=== PATIENT | male | born 1950 | race Caucasian/White ===

== ENCOUNTER 2022-11-15 07:05 | Emergency (ER) | payer OTHER ==
--- OUTSIDE RECORDS SUMMARY | 2022-11-15 07:10 | XMS REPORT | Continuity of Care Document ---
:1950 Author Organization [facility] t Address [address] [facility] [address] [place] [address] Care Team Providers Name Role Phone Suni Huston MD Primary Care Physician [phone] REGINE JUNE Attending Clinician Unavailable JUAN MIGUEL DE LEON Attending Clinician Unavailable SUNI HUSTON Attending Clinician Unavailable TREASURE PAREDES Attending Clinician Unavailable CECILLE LAMA Attending Clinician Unavailable LAB90 Attending Clinician Unavailable KATERYNA TEE Attending Clinician Unavailable SERGEI MARSH Attending Clinician Unavailable RICHIE PATEL Attending Clinician Unavailable Kateryna Tee DO Attending Clinician Suni Huston MD Attending Clinician [phone] COVID-PFIZER TREASURE BECK Attending Clinician Unavaila ble NT90 Attending Clinician Unavailable COVID-BEVERLY CASTILLO Attending Clinician Unavaila ble Payers Payer Name Policy Type Policy Number Effective Date Expiration Date S [place] [id number] 2021 00:00:00 HLTH-UMR/PPO Problems Condition Condition Condition Status Onset Resolution Last Treating Co mments Source Name Details Category Date Date Treatment Clinician Date DM type 2 DM type 2 Disease Active John sey with with 5-21 Seybold diabetic diabetic 00:00: - mixed mixed 00 Externa hyperlipid hyperlipid l emia emia Acute Acute Disease Active Faiza left-sided left-sided 2-06 Se ybold low back low back 00:00: - pain pain 00 Externa without without l sciatica sciatica Closed Closed Disease Active 2021-03 Faiza nondisplac nondisplac 1-18 Se ybold ed ed 00:00: - fracture fracture 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 middle of middle l phalanx of phalanx of left left middle middle finger finger with with routine routine healing healing Right hand Right hand Disease Active 2021-03 Alfredito kale pain pain 0-12 Seybold 00:00: - 00 Externa l Well adult Well adult Disease Active Alfredito grettaalessandra exam exam 8-30 Seybold 00:00: - 00 Externa l Hyperlipid Hyperlipid Disease Active Alfredito gretatalessandra emia emia 8-30 Seybold 00:00: - 00 Externa l Sebaceous Sebaceous Disease Active John carter cyst cyst 8 Seybold 00:00: - 00 Externa l Seasonal Seasonal Disease Active Madeleine y allergic allergic 2 Seybol d rhinitis rhinitis 00:00: - 00 Externa l Cerumen Cerumen Disease Active Faiza debris on debris on 2-11 Seyb old tympanic tympanic 00:00: - membrane membrane 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 both of both l ears ears Other Other Disease Active Faiza dietary dietary 2- Seybold vitamin vitamin 00:00: - B12 B12 00 Externa deficiency deficiency l anemia anemia Hypertensi Hypertensi Disease Active Alfredito henley on on 6 Seybold 00:00: - 00 Externa l Type 2 Type 2 Disease Active Faiza diabetes diabetes 6- Seybol d mellitus mellitus 00:00: - with stage with stage 00 Ex terna 3a chronic 3a chronic l kidney kidney disease, disease, without without long-term long-term current current use of use of insulin insulin Chronic Chronic Disease Active Faiza kidney kidney 6- Seybold disease, disease, 00:00: - stage III stage III 00 Exte rna (moderate) (moderate) l Allergies, Adverse Reactions, Alerts This patient has no known allergies or adverse reactions. 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 SARS-CoV-2 (event) Alcohol intake 2022-11-08 2022-11-08 Lifetime Faiza Carter bold 00:00:00 00:00:00 non-drinker - External (finding) Tobacco use and 2022-08-12 2022-08-12 Smokeless tobacco Turner perez Seybold exposure 00:00:00 00:00:00 non-user - External Education 2021-11-20 2021-11-20 16 Faiza Razoold 00:00:00 00:00:00 - External History of Social 2021-11-20 2021-11-20 Faiza Razoold function 00:00:00 00:00:00 - External Sex [birth year] Faiza gustafson 00:00:00 00:00:00 - External Smoking Status Start Date Stop Date Source Never smoked tobacco Faiza Razo old - External Medications Ordered Filled Start Stop Current Ordering Indication Dosage Frequency Signature Comments Components Source Medication Medication Date Date Medication? Clinician (SIG) Name Name Cyanocobala Yes 1000ug Take 1 Turner perez min 8-18 tablet Seybold (Vitamin 16:32: (1,000 mcg - B-12) 1000 19 total) by Exte rna MCG oral mouth l Tablet daily Aspirin 81 Yes 81mg Take 1 Kelse y MG oral 8-18 tablet (81 Seybol d Tablet 16:32: mg total) - Delayed 19 by mouth Externa Response daily l FLUTICASONE Yes [id number] 50ug Use 1 Faiza PROPIONATE, 8-18 spray (50 Sey bold NASAL, 50 00:00: mcg total) - MCG/ACT 00 in each Externa nasal nostril l Suspension daily Loratadine Yes [id number] 10mg Take 1 Faiza (Claritin 8-18 tablet (10 Seyb old Reditabs) 00:00: mg total) - 10 MG oral 00 by mouth Exter na TABLET daily l DISPERSIBLE Carvedilol Yes [id number] 3.125mg Take 1 Faiza (Coreg) 6-06 tablet Seybold 3.125 MG 00:00: (3.125 mg - oral Tablet 00 total) by Ext brad mouth l every other day Cyanocobala Yes 1000ug Take 1 Ke lsey min 5-22 tablet Seybold (Vitamin 09:53: (1,000 mcg - B-12) 1000 39 total) by Exte rna MCG oral mouth l Tablet daily Aspirin 81 Yes 81mg Take 1 Kelse y MG oral 5-22 tablet (81 Seybol d Tablet 09:53: mg total) - Delayed 39 by mouth Externa Response daily l Cyanocobala Yes 1000ug Take 1,000 Faiza min 2-20 mcg by Seybold (Vitamin 16:06: mouth - B-12) 1000 54 daily Externa MCG oral l Tablet Aspirin 81 Yes 81mg Take 81 mg K elsey MG oral 2-20 by mouth Seybold Tablet 16:06: daily - Delayed 54 Externa Response l Tramadol Yes [id number] 50mg Q.5D Take 1 Ke lsey HCl 2-06 tablet (50 Seybold (ULTRAM) 50 00:00: mg total) - MG oral 00 by mouth 2 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 Tablet times l daily as needed for pain Tramadol Yes [id number] 50mg Q.5D Take 1 Ke lsey HCl 2-06 tablet (50 Seybold (ULTRAM) 50 00:00: mg total) - MG oral 00 by mouth 2 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 Tablet times l daily as needed for pain Tramadol Yes [id number] 50mg Q.5D Take 1 Ke lsey HCl 2-06 tablet (50 Seybold (ULTRAM) 50 00:00: mg total) - MG oral 00 by mouth 2 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 Tablet times l daily as needed for pain Tramadol Yes [id number] 50mg Q.5D Take 1 Ke lsey HCl 2-06 tablet (50 Seybold (ULTRAM) 50 00:00: mg total) - MG oral 00 by mouth 2 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 Tablet times l daily as needed for pain Tramadol 2022- No [id number] 50mg Q.5D Take 1 Ke lsey HCl 2-01 02-06 tablet (50 Seybold (ULTRAM) 50 00:00: 00:00 mg total) - MG oral 00 :00 by mouth 2 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 Tablet times l daily as needed for pain Cyanocobala 2021-03 Yes 1000ug Take 1,000 Faiza min 1-18 mcg by Seybold (Vitamin 09:42: mouth - B-12) 1000 26 daily Externa MCG oral l Tablet Aspirin 2021-03 Yes 81mg Take 81 mg K elsey MG oral 1-18 by mouth Seybold Tablet 09:42: daily - Delayed 26 Externa Response l Cyanocobala 2021-03 Yes 1000ug Take 1,000 Faiza min 1-18 mcg by Seybold (Vitamin 09:42: mouth - B-12) 1000 26 daily Externa MCG oral l Tablet Aspirin 2021-03 Yes 81mg Take 81 mg K elsey MG oral 1-18 by mouth Seybold Tablet 09:42: daily - Delayed 26 Externa Response l Cyanocobala 2021-03 Yes 1000ug Take 1,000 Faiza min 0-31 mcg by Seybold (Vitamin 10:53: mouth - B-12) 1000 07 daily Externa MCG oral l Tablet Aspirin 2021-03 Yes 81mg Take 81 mg K elsey MG oral 0-31 by mouth Seybold Tablet 10:53: daily - Delayed 07 Externa Response l Cyanocobala 2021-03 Yes 1000ug Take 1,000 Faiza min 0-10 mcg by Seybold (Vitamin 08:49: mouth - B-12) 1000 18 daily Externa MCG oral l Tablet Aspirin 2021-03 Yes 81mg Take 81 mg K elsey MG oral 0-10 by mouth Seybold Tablet 08:49: daily - Delayed 18 Externa Response l NEOMYCIN-PO 2021-03 Yes [id number] 2[drp] Place 2 Faiza LYMYXIN-HC, 0-10 [id number] drops into S eybold OTIC, 1 % 00:00: both ears - otic 00 3 times Externa Solution daily l NEOMYCIN-PO 2021-03 Yes [id number] 2[drp] Place 2 Faiza LYMYXIN-HC, 0-10 [id number] drops into S eybold OTIC, 1 % 00:00: both ears - otic 00 3 times Externa Solution daily l NEOMYCIN-PO 2021-03 Yes [id number] 2[drp] Place 2 Faiza LYMYXIN-HC, 0-10 [id number] drops into S eybold OTIC, 1 % 00:00: both ears - otic 00 3 times Externa Solution daily l NEOMYCIN-PO 2021-03 Yes [id number] 2[drp] Place 2 Faiza LYMYXIN-HC, 0-10 [id number] drops into S eybold OTIC, 1 % 00:00: both ears - otic 00 3 times Externa Solution daily l NEOMYCIN-PO 2021-03 Yes [id number] 2[drp] Place 2 Faiza LYMYXIN-HC, 0-10 [id number] drops into S eybold OTIC, 1 % 00:00: both ears - otic 00 3 times Externa Solution daily l NEOMYCIN-PO 2021-03 Yes [id number] 2[drp] Place 2 Faiza LYMYXIN-HC, 0-10 [id number] drops into S eybold OTIC, 1 % 00:00: both ears - otic 00 3 times Externa Solution daily l NEOMYCIN-PO 2021-03 Yes [id number] 2[drp] Place 2 Faiza LYMYXIN-HC, 0-10 [id number] drops into S eybold OTIC, 1 % 00:00: both ears - otic 00 3 times Externa Solution daily l LISINOPRIL- Yes [id number] 1{tbl} Take 1 Faiza HCTZ 8-30 tablet by Seybold 20-12.5 MG 00:00: mouth - oral Tablet 00 daily Externa l Pioglitazon Yes [id number] 15mg Take 1 Faiza e HCl 15 MG 8-30 tablet (15 Se ybold oral Tablet 00:00: mg total) - 00 by mouth Externa daily l Carvedilol Yes [id number] 3.125mg Take 1 Faiza (Coreg) 8-30 tablet Seybold 3.125 MG 00:00: (3.125 mg - oral Tablet 00 total) by Ext brad mouth l every other day LISINOPRIL- Yes [id number] 1{tbl} Take 1 Faiza HCTZ 8-30 tablet by Seybold 20-12.5 MG 00:00: mouth - oral Tablet 00 daily Externa l Pioglitazon 2021-0 Yes [id number] 15mg Take 1 Faiza e HCl 15 MG 8-30 tablet (15 Se ybold oral Tablet 00:00: mg total) - 00 by mouth Externa daily l Carvedilol 2021-0 Yes [id number] 3.125mg Take 1 Faiza (Coreg) 8-30 tablet Seybold 3.125 MG 00:00: (3.125 mg - oral Tablet 00 total) by Ext brad mouth l every other day LISINOPRIL- 2021-0 Yes [id number] 1{tbl} Take 1 Faiza HCTZ 8-30 tablet by Seybold 20-12.5 MG 00:00: mouth - oral Tablet 00 daily Externa l Pioglitazon 0 Yes [id number] 15mg Take 1 Faiza e HCl 15 MG 8-30 tablet (15 Se ybold oral Tablet 00:00: mg total) - 00 by mouth Externa daily l Carvedilol 0 Yes [id number] 3.125mg Take 1 Faiza (Coreg) 8-30 tablet Seybold 3.125 MG 00:00: (3.125 mg - oral Tablet 00 total) by Ext brad mouth l every other day LISINOPRIL- 2021-0 Yes [id number] 1{tbl} Take 1 Faiza HCTZ 8-30 tablet by Seybold 20-12.5 MG 00:00: mouth - oral Tablet 00 daily Externa l Pioglitazon 2021-0 Yes [id number] 15mg Take 1 Faiza e HCl 15 MG 8-30 tablet (15 Se ybold oral Tablet 00:00: mg total) - 00 by mouth Externa daily l Carvedilol 0 Yes [id number] 3.125mg Take 1 Faiza (Coreg) 8-30 tablet Seybold 3.125 MG 00:00: (3.125 mg - oral Tablet 00 total) by Ext brad mouth l every other day LISINOPRIL- 2021-0 Yes [id number] 1{tbl} Take 1 Faiza HCTZ 8-30 tablet by Seybold 20-12.5 MG 00:00: mouth - oral Tablet 00 daily Externa l Pioglitazon 2021-0 Yes [id number] 15mg Take 1 Faiza e HCl 15 MG 8-30 tablet (15 Se ybold oral Tablet 00:00: mg total) - 00 by mouth Externa daily l Carvedilol Yes [id number] 3.125mg Take 1 Faiza (Coreg) 8-30 tablet Seybold 3.125 MG 00:00: (3.125 mg - oral Tablet 00 total) by Ext brad mouth l every other day LISINOPRIL- Yes [id number] 1{tbl} Take 1 Faiza HCTZ 8-30 tablet by Seybold 20-12.5 MG 00:00: mouth - oral Tablet 00 daily Externa l Pioglitazon Yes [id number] 15mg Take 1 Faiza e HCl 15 MG 8-30 tablet (15 Se ybold oral Tablet 00:00: mg total) - 00 by mouth Externa daily l Carvedilol Yes [id number] 3.125mg Take 1 Faiza (Coreg) 8-30 tablet Seybold 3.125 MG 00:00: (3.125 mg - oral Tablet 00 total) by Ext brad mouth l every other day LISINOPRIL- Yes [id number] 1{tbl} Take 1 Faiza HCTZ 8-30 tablet by Seybold 20-12.5 MG 00:00: mouth - oral Tablet 00 daily Externa l Pioglitazon Yes [id number] 15mg Take 1 Faiza e HCl 15 MG 8-30 tablet (15 Se ybold oral Tablet 00:00: mg total) - 00 by mouth Externa daily l Amoxicillin 2021- No [id number] 1{tbl} Take 1 Faiza -Pot 8-23 10-10 tablet by Seybold Clavulanate 00:00: 00:00 mouth 2 - 875-125 MG 00 :00 times Externa oral Tablet daily l NEOMYCIN-PO 2021- No [id number] 2[drp] Place 2 Faiza LYMYXIN-HC, 8-10 10-10 [id number] drops into Seybold OTIC, 1 % 00:00: 00:00 both ears - otic 00 :00 3 times Externa Solution daily l Cyanocobala Yes 1000ug Take 1,000 Faiza min 5-16 mcg by Seybold (Vitamin 09:07: mouth B-12) 1000 24 daily MCG oral Tablet Aspirin 81 Yes 81mg Take 81 mg K elsey MG oral 5-16 by mouth Seybold Tablet 09:07: daily Delayed 24 Response Cyanocobala Yes 1000ug Take 1,000 Faiza min 2-11 mcg by Seybold (Vitamin 09:11: mouth B-12) 1000 51 daily MCG oral Tablet Aspirin Yes 81mg Take 81 mg Emilia ey (Aspirin 2-11 by mouth Seybold 81) 81 MG 09:10: every oral Tablet 35 other day Delayed Response Carvedilol Yes [id number] 3.125mg Take 1 Faiza (Coreg) 2-11 tablet Seybold 3.125 MG 00:00: (3.125 mg oral Tablet 00 total) by mouth 2 times daily (with meals) FLUTICASONE Yes [id number] 50ug Use 1 Faiza PROPIONATE, 2-11 spray (50 Sey bold NASAL, 50 00:00: mcg total) MCG/ACT 00 in each nasal nostril Suspension daily Loratadine Yes [id number] 10mg Take 1 Faiza (Claritin 2-11 tablet (10 Seyb old Reditabs) 00:00: mg total) 10 MG oral 00 by mouth TABLET daily DISPERSIBLE Carvedilol Yes [id number] 3.125mg Take 1 Faiza (Coreg) 2-11 tablet Seybold 3.125 MG 00:00: (3.125 mg oral Tablet 00 total) by mouth 2 times daily (with meals) FLUTICASONE Yes [id number] 50ug Use 1 Faiza PROPIONATE, 2-11 spray (50 Sey bold NASAL, 50 00:00: mcg total) MCG/ACT 00 in each nasal nostril Suspension daily Loratadine Yes [id number] 10mg Take 1 Faiza (Claritin 2-11 tablet (10 Seyb old Reditabs) 00:00: mg total) 10 MG oral 00 by mouth TABLET daily DISPERSIBLE FLUTICASONE Yes [id number] 50ug Use 1 Faiza PROPIONATE, 2-11 spray (50 Sey bold NASAL, 50 00:00: mcg total) - MCG/ACT 00 in each Externa nasal nostril l Suspension daily Loratadine 0 Yes [id number] 10mg Take 1 Faiza (Claritin 2-11 tablet (10 Seyb old Reditabs) 00:00: mg total) - 10 MG oral 00 by mouth Exter na TABLET daily l DISPERSIBLE FLUTICASONE 0 Yes [id number] 50ug Use 1 Faiza PROPIONATE, 2-11 spray (50 Sey bold NASAL, 50 00:00: mcg total) - MCG/ACT 00 in each Externa nasal nostril l Suspension daily Loratadine 0 Yes [id number] 10mg Take 1 Faiza (Claritin 2-11 tablet (10 Seyb old Reditabs) 00:00: mg total) - 10 MG oral 00 by mouth Exter na TABLET daily l DISPERSIBLE FLUTICASONE 0 Yes [id number] 50ug Use 1 Faiza PROPIONATE, 2-11 spray (50 Sey bold NASAL, 50 00:00: mcg total) - MCG/ACT 00 in each Externa nasal nostril l Suspension daily Loratadine 0 Yes [id number] 10mg Take 1 Faiza (Claritin 2-11 tablet (10 Seyb old Reditabs) 00:00: mg total) - 10 MG oral 00 by mouth Exter na TABLET daily l DISPERSIBLE FLUTICASONE 0 Yes [id number] 50ug Use 1 Faiza PROPIONATE, 2-11 spray (50 Sey bold NASAL, 50 00:00: mcg total) - MCG/ACT 00 in each Externa nasal nostril l Suspension daily Loratadine 0 Yes [id number] 10mg Take 1 Faiza (Claritin 2-11 tablet (10 Seyb old Reditabs) 00:00: mg total) - 10 MG oral 00 by mouth Exter na TABLET daily l DISPERSIBLE FLUTICASONE 0 Yes [id number] 50ug Use 1 Faiza PROPIONATE, 2-11 spray (50 Sey bold NASAL, 50 00:00: mcg total) - MCG/ACT 00 in each Externa nasal nostril l Suspension daily Loratadine 0 Yes [id number] 10mg Take 1 Faiza (Claritin 2-11 tablet (10 Seyb old Reditabs) 00:00: mg total) - 10 MG oral 00 by mouth Exter na TABLET daily l DISPERSIBLE FLUTICASONE Yes [id number] 50ug Use 1 Faiza PROPIONATE, 2-11 spray (50 Sey bold NASAL, 50 00:00: mcg total) - MCG/ACT 00 in each Externa nasal nostril l Suspension daily Loratadine Yes [id number] 10mg Take 1 Faiza (Claritin 2-11 tablet (10 Seyb old Reditabs) 00:00: mg total) - 10 MG oral 00 by mouth Exter na TABLET daily l DISPERSIBLE FLUTICASONE 2022- No [id number] 50ug Use 1 Faiza PROPIONATE, 2-11 08-18 spray (50 Se ybold NASAL, 50 00:00: 00:00 mcg total) - MCG/ACT 00 :00 in each Externa nasal nostril l Suspension daily Loratadine 2022- No [id number] 10mg Take 1 Faiza (Claritin 2-11 08-18 tablet (10 Sey bold Reditabs) 00:00: 00:00 mg total) - 10 MG oral 00 :00 by mouth Exter na TABLET daily l DISPERSIBLE Aspirin 2020-03 Yes 81mg Take 81 mg Emilia ey (Aspirin 2-06 by mouth Seybold 81) 81 MG 08:31: every oral Tablet 35 other day Delayed Response Aspirin 2020-03 Yes 81mg Take 81 mg Emilia ey (Aspirin 1-09 by mouth Seybold 81) 81 MG 10:57: every oral Tablet 52 other day Delayed Response Escitalopra 2020-03 Yes Faiza m Oxalate 0-27 Seybold 10 MG oral 00:00: Tablet 00 Escitalopra 2020-03 Yes Faiza m Oxalate 0-27 Seybold 10 MG oral 00:00: Tablet 00 Escitalopra 2020-03 Yes Faiza m Oxalate 0-27 Seybold 10 MG oral 00:00: Tablet 00 Alprazolam 2020-03 Yes [id number] Take 1 Faiza 0.25 MG 0-01 tablet by Seybold oral Tablet 00:00: mouth as 00 needed before stressful event Alprazolam 2020-03 Yes [id number] Take 1 Faiza 0.25 MG 0-01 tablet by Seybold oral Tablet 00:00: mouth as 00 needed before stressful event Alprazolam 2020-03- No [id number] Take 1 Faiza 0.25 MG 0-01 02-11 tablet by Seybol d oral Tablet 00:00: 00:00 mouth as 00 :00 needed before stressful event Carvedilol Yes [id number] 12.5mg Take 1 Faiza 12.5 MG 6-11 tablet Seybold oral Tablet 00:00: (12.5 mg 00 total) by mouth 2 times daily (with meals) Carvedilol Yes [id number] 12.5mg Take 1 Faiza 12.5 MG 6-11 tablet Seybold oral Tablet 00:00: (12.5 mg 00 total) by mouth 2 times daily (with meals) Carvedilol 2021- No [id number] 12.5mg Take 1 Faiza 12.5 MG 6-11 02-11 tablet Seybold oral Tablet 00:00: 00:00 (12.5 mg 00 :00 total) by mouth 2 times daily (with meals) Pioglitazon Yes [id number] 15mg Take 1 Faiza e HCl 15 MG 6-10 tablet (15 Se ybold oral Tablet 00:00: mg total) 00 by mouth daily LISINOPRIL- Yes [id number] 1{tbl} Take 1 Faiza HCTZ 6-10 tablet by Seybold 20-12.5 MG 00:00: mouth oral Tablet 00 daily Pioglitazon 2020-0 Yes [id number] 15mg Take 1 Faiza e HCl 15 MG 6-10 tablet (15 Se ybold oral Tablet 00:00: mg total) 00 by mouth daily LISINOPRIL- 0 Yes [id number] 1{tbl} Take 1 Faiza HCTZ 6-10 tablet by Seybold 20-12.5 MG 00:00: mouth oral Tablet 00 daily Pioglitazon 0 Yes [id number] 15mg Take 1 Faiza e HCl 15 MG 6-10 tablet (15 Se ybold oral Tablet 00:00: mg total) 00 by mouth daily LISINOPRIL- 0 Yes [id number] 1{tbl} Take 1 Faiza HCTZ 6-10 tablet by Seybold 20-12.5 MG 00:00: mouth oral Tablet 00 daily Pioglitazon Yes [id number] 15mg Take 1 Faiza e HCl 15 MG 6-10 tablet (15 Se ybold oral Tablet 00:00: mg total) 00 by mouth daily LISINOPRIL- Yes [id number] 1{tbl} Take 1 Faiza HCTZ 6-10 tablet by Seybold 20-12.5 MG 00:00: mouth oral Tablet 00 daily Immunizations Ordered Immunization Filled Immunization Date Status Commen ts Source Name Name Tdap- (Boostrix, 2022-07-12 Completed Faiza gonzalezbobrandie Adacel) 00:00:00 - External Tdap- (Boostrix, 2022-07-12 Completed Faiza gonzalezbobrandie Adacel) 00:00:00 - External Influenza Virus 2021-12-03 Completed Faiza Se ybold Vaccine, 00:00:00 - External Quadrivalent, High Dose, Age 65 And Up Influenza Virus 2021-12-03 Completed Faiza Se ybold Vaccine, 00:00:00 - External Quadrivalent, High Dose, Age 65 And Up Influenza Virus 2021-12-03 Completed Faiza Se ybold Vaccine, 00:00:00 - External Quadrivalent, High Dose, Age 65 And Up Influenza Virus 2021-12-03 Completed Faiza Se ybold Vaccine, 00:00:00 - External Quadrivalent, High Dose, Age 65 And Up Influenza Virus 2021-12-03 Completed Faiza Se ybold Vaccine, 00:00:00 - External Quadrivalent, High Dose, Age 65 And Up Influenza Virus 2021-12-03 Completed Faiza Se ybold Vaccine, 00:00:00 - External Quadrivalent, High Dose, Age 65 And Up Influenza Virus 2021-12-03 Completed Faiza Se ybold Vaccine, 00:00:00 - External Quadrivalent, High Dose, Age 65 And Up Pneumococcal Vaccine, 2021-11-20 Completed John sey Seybold Polysaccharide 00:00:00 - External Pneumococcal Vaccine, 2021-11-20 Completed John sey Seybold Polysaccharide 00:00:00 - External Pneumococcal Vaccine, 2021-11-20 Completed John sey Seybold Polysaccharide 00:00:00 - External Pneumococcal Vaccine, 2021-11-20 Completed John sey Seybold Polysaccharide 00:00:00 - External Pneumococcal Vaccine, 2021-11-20 Completed John sey Seybold Polysaccharide 00:00:00 - External Pneumococcal Vaccine, 2021-11-20 Completed John sey Seybold Polysaccharide 00:00:00 - External Pneumococcal Vaccine, 2021-11-20 Completed John sey Seybold Polysaccharide 00:00:00 - External COVID-19 VACCINE 2021-08-24 Completed Faiza S eybold PFIZER 12+ (Flanagan cap) 00:00:00 - E xternal COVID-19 VACCINE 2021-08-24 Completed Faiza S eybold PFIZER 12+ (Flanagan cap) 00:00:00 - E xternal COVID-19 VACCINE 2021-08-24 Completed Faiza S eybold PFIZER 12+ (Flanagan cap) 00:00:00 - E xternal COVID-19 VACCINE 2021-08-24 Completed Faiza S eybold PFIZER 12+ (Flanagan cap) 00:00:00 - E xternal COVID-19 VACCINE 2021-08-24 Completed Faiza S eybold PFIZER 12+ (Flanagan cap) 00:00:00 - E xternal COVID-19 VACCINE 2021-08-24 Completed Faiza S eybold PFIZER 12+ (Flanagan cap) 00:00:00 - E xternal COVID-19 VACCINE 2021-08-24 Completed Faiza S eybold PFIZER 12+ (Flanagan cap) 00:00:00 - E xternal Covid-19 Vaccine 2021-01-16 Completed Faiza whitten Moderna (Spikevax), 00:00:00 Mrna-lnp, Ozzie Protein, Pf Covid-19 Vaccine 2021-01-16 Completed Faiza Robles eybold Moderna (Spikevax), 00:00:00 Mrna-lnp, Ozzie Protein, Pf Covid-19 Vaccine 2021-01-16 Completed Faiza Robles eybold Moderna (Spikevax), 00:00:00 - Ext ernal Mrna-lnp, Ozzie Protein, Pf Covid-19 Vaccine 2021-01-16 Completed Faiza Robles eybold Moderna (Spikevax), 00:00:00 - Ext ernal Mrna-lnp, Ozzie Protein, Pf Covid-19 Vaccine 2021-01-16 Completed Faiza Robles eybold Moderna (Spikevax), 00:00:00 - Ext ernal Mrna-lnp, Ozzie Protein, Pf Covid-19 Vaccine 2021-01-16 Completed Faiza connollyld Moderna (Spikevax), 00:00:00 - Ext ernal Mrna-lnp, Ozzie Protein, Pf Covid-19 Vaccine 2021-01-16 Completed Faiza connollyld (Moderna), Mrna-lnp, 00:00:00 Ozzie Protein, Pf, 100 Mcg/0.5ml,IM Covid-19 Vaccine 2021-01-16 Completed Faiza connollyld Moderna (Spikevax), 00:00:00 - Ext ernal Mrna-lnp, Ozzie Protein, Pf Covid-19 Vaccine 2021-01-16 Completed Faiza Robles eybold Moderna (Spikevax), 00:00:00 - Ext ernal Mrna-lnp, Ozzie Protein, Pf Covid-19 Vaccine 2021-01-16 Completed Faiza connollyld Moderna (Spikevax), 00:00:00 - Ext ernal Mrna-lnp, Ozzie Protein, Pf Covid-19 Vaccine 2021-01-16 Completed Faiza connollyld (Moderna), Mrna-lnp, 00:00:00 Ozzie Protein, Pf, 100 Mcg/0.5ml,IM Influenza Virus 2020-11-22 Completed Faiza Penn ybold Vaccine, 00:00:00 Quadrivalent, High Dose, Age 65 And Up Influenza Virus 2020-11-22 Completed Faiza Se ybold Vaccine, 00:00:00 Quadrivalent, High Dose, Age 65 And Up Influenza Virus 2020-11-22 Completed Faiza Se ybold Vaccine, 00:00:00 - External Quadrivalent, High Dose, Age 65 And Up Influenza Virus 2020-11-22 Completed Faiza Se ybold Vaccine, 00:00:00 - External Quadrivalent, High Dose, Age 65 And Up Influenza Virus 2020-11-22 Completed Faiza Se ybold Vaccine, 00:00:00 - External Quadrivalent, High Dose, Age 65 And Up Influenza Virus 2020-11-22 Completed Faiza Se ybold Vaccine, 00:00:00 - External Quadrivalent, High Dose, Age 65 And Up Influenza Virus 2020-11-22 Completed Fazia Penn ybold Vaccine, 00:00:00 Quadrivalent, High Dose, Age 65 And Up Influenza Virus 2020-11-22 Completed Faiza Penn ybold Vaccine, 00:00:00 - External Quadrivalent, High Dose, Age 65 And Up Influenza Virus 2020-11-22 Completed Faiza Penn ybold Vaccine, 00:00:00 - External Quadrivalent, High Dose, Age 65 And Up Influenza Virus 2020-11-22 Completed Faiza ybold Vaccine, 00:00:00 - External Quadrivalent, High Dose, Age 65 And Up Influenza Virus 2020-11-22 Completed Faiza ybold Vaccine, 00:00:00 Quadrivalent, High Dose, Age 65 And Up Covid-19 Vaccine 2020-07-07 Completed Faiza whitten Moderna (Spikevax), 00:00:00 Mrna-lnp, Ozzie Protein, Pf Covid-19 Vaccine 2020-07-07 Completed Faiza whitten Moderna (Spikevax), 00:00:00 Mrna-lnp, Ozzie Protein, Pf Covid-19 Vaccine 2020-07-07 Completed Faiza whitten Moderna (Spikevax), 00:00:00 - Ext ernal Mrna-lnp, Ozzie Protein, Pf Covid-19 Vaccine 2020-07-07 Completed Faiza whitten Moderna (Spikevax), 00:00:00 - Ext ernal Mrna-lnp, Ozzie Protein, Pf Covid-19 Vaccine 2020-07-07 Completed Faiza whitten Moderna (Spikevax), 00:00:00 - Ext ernal Mrna-lnp, Ozzie Protein, Pf Covid-19 Vaccine 2020-07-07 Completed Faiza whitetn (Moderna), Mrna-lnp, 00:00:00 Ozzie Protein, Pf, 100 Mcg/0.5ml,IM Covid-19 Vaccine 2020-07-07 Completed Faiza whitten Moderna (Spikevax), 00:00:00 - Ext ernal Mrna-lnp, Ozzie Protein, Pf Covid-19 Vaccine 2020-07-07 Completed Faiza whitten Moderna (Spikevax), 00:00:00 - Ext ernal Mrna-lnp, Ozzie Protein, Pf Covid-19 Vaccine 2020-07-07 Completed Faiza whitten Moderna (Spikevax), 00:00:00 - Ext ernal Mrna-lnp, Ozzie Protein, Pf Covid-19 Vaccine 2020-07-07 Completed Faiza whitten Moderna (Spikevax), 00:00:00 - Ext ernal Mrna-lnp, Ozzie Protein, Pf Covid-19 Vaccine 2020-07-07 Completed Faiza whitten (Moderna), Mrna-lnp, 00:00:00 Ozzie Protein, Pf, 100 Mcg/0.5ml,IM Covid-19 Vaccine 2020-06-09 Completed Faiza whitten Moderna (Spikevax), 00:00:00 Mrna-lnp, Ozzie Protein, Pf Covid-19 Vaccine 2020-06-09 Completed Faiza whitten Moderna (Spikevax), 00:00:00 Mrna-lnp, Ozzie Protein, Pf Covid-19 Vaccine 2020-06-09 Completed Faiza whitten Moderna (Spikevax), 00:00:00 - Ext ernal Mrna-lnp, Ozzie Protein, Pf Covid-19 Vaccine 2020-06-09 Completed Faiza whitten Moderna (Spikevax), 00:00:00 - Ext ernal Mrna-lnp, Ozzie Protein, Pf Covid-19 Vaccine 2020-06-09 Completed Faiza whitten Moderna (Spikevax), 00:00:00 - Ext ernal Mrna-lnp, Ozzie Protein, Pf Covid-19 Vaccine 2020-06-09 Completed Faiza whitten Moderna (Spikevax), 00:00:00 - Ext ernal Mrna-lnp, Ozzie Protein, Pf Covid-19 Vaccine 2020-06-09 Completed Faiza whitten (Moderna), Mrna-lnp, 00:00:00 Ozzie Protein, Pf, 100 Mcg/0.5ml,IM Covid-19 Vaccine 2020-06-09 Completed Faiza whitten Moderna (Spikevax), 00:00:00 - Ext ernal Mrna-lnp, Ozzie Protein, Pf Covid-19 Vaccine 2020-06-09 Completed Faiza whitten Moderna (Spikevax), 00:00:00 - Ext ernal Mrna-lnp, Ozzie Protein, Pf Covid-19 Vaccine 2020-06-09 Completed Faiza whitten Moderna (Spikevax), 00:00:00 - Ext ernal Mrna-lnp, Ozzie Protein, Pf Covid-19 Vaccine 2020-06-09 Completed Faiza whitten (Moderna), Mrna-lnp, 00:00:00 Ozzie Protein, Pf, 100 Mcg/0.5ml,IM Shingles IM 2019-09-23 Completed Faiza Seybol d (Shingrix) 00:00:00 Shingles IM 2019-09-23 Completed Faiza Seybol d (Shingrix) 00:00:00 Shingles IM 2019-09-23 Completed Faiza Seybol d (Shingrix) 00:00:00 - External Shingles IM 2019-09-23 Completed Faiza Seybol d (Shingrix) 00:00:00 - External Shingles IM 2019-09-23 Completed Fiaza Seybol d (Shingrix) 00:00:00 - External Shingles IM 2019-09-23 Completed Faiza Seybol d (Shingrix) 00:00:00 Shingles IM 2019-09-23 Completed Faiza Seybol d (Shingrix) 00:00:00 - External Shingles IM 2019-09-23 Completed Faiza Seybol d (Shingrix) 00:00:00 - External Shingles IM 2019-09-23 Completed Faiza Seybol d (Shingrix) 00:00:00 - External Shingles IM 2019-09-23 Completed Faiza Seybol d (Shingrix) 00:00:00 - External Shingles IM 2019-09-23 Completed Faiza Seybol d (Shingrix) 00:00:00 Shingles IM 2019-05-21 Completed Faiza Seybol d (Shingrix) 00:00:00 Shingles IM 2019-05-21 Completed Faiza Seybol d (Shingrix) 00:00:00 Shingles IM 2019-05-21 Completed Faiza Seybol d (Shingrix) 00:00:00 - External Shingles IM 2019-05-21 Completed Faiza Seybol d (Shingrix) 00:00:00 - External Shingles IM 2019-05-21 Completed Faiza Seybol d (Shingrix) 00:00:00 - External Shingles IM 2019-05-21 Completed Faiza Seybol d (Shingrix) 00:00:00 Shingles IM 2019-05-21 Completed Faiza Seybol d (Shingrix) 00:00:00 - External Shingles IM 2019-05-21 Completed Faiza Seybol d (Shingrix) 00:00:00 - External Shingles IM 2019-05-21 Completed Faiza Seybol d (Shingrix) 00:00:00 - External Shingles IM 2019-05-21 Completed Faiza Seybol d (Shingrix) 00:00:00 - External Shingles IM 2019-05-21 Completed Faiza Seybol d (Shingrix) 00:00:00 Influenza Virus 2019-01-08 Completed Faiza Se ybold Vaccine, age 6 months 00:00:00 and up Influenza Virus 2019-01-08 Completed Faiza Se ybold Vaccine, age 6 months 00:00:00 and up Influenza Virus 2019-01-08 Completed Faiza Se ybold Vaccine, age 6 months 00:00:00 - E xternal and up Influenza Virus 2019-01-08 Completed Faiza Se ybold Vaccine, age 6 months 00:00:00 - E xternal and up Influenza Virus 2019-01-08 Completed Faiza Se ybold Vaccine, age 6 months 00:00:00 and up Influenza Virus 2019-01-08 Completed Faiza Se ybold Vaccine, age 6 months 00:00:00 - E xternal and up Influenza Virus 2019-01-08 Completed Faiza Se ybold Vaccine, age 6 months 00:00:00 - E xternal and up Influenza Virus 2019-01-08 Completed Faiza Se ybold Vaccine, age 6 months 00:00:00 - E xternal and up Influenza Virus 2019-01-08 Completed Faiza Se ybold Vaccine, age 6 months 00:00:00 - E xternal and up Influenza Virus 2019-01-08 Completed Faiza Se ybold Vaccine, age 6 months 00:00:00 - E xternal and up Influenza Virus 2019-01-08 Completed Faiza Se ybold Vaccine, age 6 months 00:00:00 and up Influenza Virus 2018-01-06 Completed Faiza Se ybold Vaccine, age 6 months 00:00:00 and up Influenza Virus 2018-01-06 Completed Faiza Se ybold Vaccine, age 6 months 00:00:00 and up Influenza Virus 2018-01-06 Completed Faiza Se ybold Vaccine, age 6 months 00:00:00 - E xternal and up Influenza Virus 2018-01-06 Completed Faiza Se ybold Vaccine, age 6 months 00:00:00 - E xternal and up Influenza Virus 2018-01-06 Completed Faiza Se ybold Vaccine, age 6 months 00:00:00 and up Influenza Virus 2018-01-06 Completed Faiza Se ybold Vaccine, age 6 months 00:00:00 - E xternal and up Influenza Virus 2018-01-06 Completed Faiza Se ybold Vaccine, age 6 months 00:00:00 - E xternal and up Influenza Virus 2018-01-06 Completed Faiza Se ybold Vaccine, age 6 months 00:00:00 - E xternal and up Influenza Virus 2018-01-06 Completed Faiza Se ybold Vaccine, age 6 months 00:00:00 - E xternal and up Influenza Virus 2018-01-06 Completed Faiza Se ybold Vaccine, age 6 months 00:00:00 - E xternal and up Influenza Virus 2018-01-06 Completed Faiza Se ybold Vaccine, age 6 months 00:00:00 and up Influenza Virus 2016-12-09 Completed Faiza Se ybold Vaccine, age 6 months 00:00:00 and up Influenza Virus 2016-12-09 Completed Faiza Se ybold Vaccine, No Preserv, 00:00:00 age 6 months and up Influenza Virus 2016-12-09 Completed Faiza Se ybold Vaccine, age 6 months 00:00:00 and up Influenza Virus 2016-12-09 Completed Faiza Se ybold Vaccine, No Preserv, 00:00:00 age 6 months and up Influenza Virus 2016-12-09 Completed Faiza Se ybold Vaccine, age 6 months 00:00:00 - E xternal and up Influenza Virus 2016-12-09 Completed Faiza Se ybold Vaccine, No Preserv, 00:00:00 - Ex ternal age 6 months and up Influenza Virus 2016-12-09 Completed Faiza Se ybold Vaccine, age 6 months 00:00:00 - E xternal and up Influenza Virus 2016-12-09 Completed Faiza Se ybold Vaccine, No Preserv, 00:00:00 - Ex ternal age 6 months and up Influenza Virus 2016-12-09 Completed Faiza Se ybold Vaccine, age 6 months 00:00:00 and up Influenza Virus 2016-12-09 Completed Faiza Se ybold Vaccine, age 6 months 00:00:00 - E xternal and up Influenza Virus 2016-12-09 Completed Faiza Se ybold Vaccine, No Preserv, 00:00:00 - Ex ternal age 6 months and up Influenza Virus 2016-12-09 Completed Faiza Se ybold Vaccine, age 6 months 00:00:00 - E xternal and up Influenza Virus 2016-12-09 Completed Faiza Se ybold Vaccine, No Preserv, 00:00:00 - Ex ternal age 6 months and up Influenza Virus 2016-12-09 Completed Faiza Se ybold Vaccine, No Preserv, 00:00:00 age 6 months and up Influenza Virus 2016-12-09 Completed Faiza Se ybold Vaccine, age 6 months 00:00:00 - E xternal and up Influenza Virus 2016-12-09 Completed Faiza Se ybold Vaccine, No Preserv, 00:00:00 - Ex ternal age 6 months and up Influenza Virus 2016-12-09 Completed Faiza Se ybold Vaccine, age 6 months 00:00:00 - E xternal and up Influenza Virus 2016-12-09 Completed Faiza Se ybold Vaccine, No Preserv, 00:00:00 - Ex ternal age 6 months and up Influenza Virus 2016-12-09 Completed Faiza Se ybold Vaccine, age 6 months 00:00:00 - E xternal and up Influenza Virus 2016-12-09 Completed Faiza Se ybold Vaccine, No Preserv, 00:00:00 - Ex ternal age 6 months and up Influenza Virus 2016-12-09 Completed Faiza Se ybold Vaccine, age 6 months 00:00:00 and up Influenza Virus 2016-12-09 Completed Faiza Se ybold Vaccine, No Preserv, 00:00:00 age 6 months and up Pneumococcal Vaccine, 2016-01-22 Completed John sey Seybold Polysaccharide 00:00:00 Pneumococcal Vaccine, 2016-01-22 Completed John sey Seybold Polysaccharide 00:00:00 Pneumococcal Vaccine, 2016-01-22 Completed John sey Seybold Polysaccharide 00:00:00 - External Pneumococcal Vaccine, 2016-01-22 Completed John sey Seybold Polysaccharide 00:00:00 - External Pneumococcal Vaccine, 2016-01-22 Completed John sey Seybold Polysaccharide 00:00:00 - External Pneumococcal Vaccine, 2016-01-22 Completed John sey Seybold Polysaccharide 00:00:00 Pneumococcal Vaccine, 2016-01-22 Completed John sey Seybold Polysaccharide 00:00:00 - External Pneumococcal Vaccine, 2016-01-22 Completed John sey Seybold Polysaccharide 00:00:00 - External Pneumococcal Vaccine, 2016-01-22 Completed John sey Seybold Polysaccharide 00:00:00 - External Pneumococcal Vaccine, 2016-01-22 Completed John sey Seybold Polysaccharide 00:00:00 - External Pneumococcal Vaccine, 2016-01-22 Completed John sey Seybold Polysaccharide 00:00:00 Td- Tetanus & 2014-02-07 Completed Faiza Seyb old Diphtheria Vaccine 00:00:00 (age 7+ years) Influenza Virus 2014-02-07 Completed Faiza Se ybold Vaccine, age 6 months 00:00:00 and up Td- Tetanus & 2014-02-07 Completed Faiza Seyb old Diphtheria Vaccine 00:00:00 (age 7+ years) Influenza Virus 2014-02-07 Completed Faiza Se ybold Vaccine, age 6 months 00:00:00 and up Td- Tetanus & 2014-02-07 Completed Faiza Seyb old Diphtheria Vaccine 00:00:00 - Exte rnal (age 7+ years) Influenza Virus 2014-02-07 Completed Faiza Se ybold Vaccine, age 6 months 00:00:00 - E xternal and up Td- Tetanus & 2014-02-07 Completed Faiza Seyb old Diphtheria Vaccine 00:00:00 (age 7+ years) Td- Tetanus & 2014-02-07 Completed Faiza Seyb old Diphtheria Vaccine 00:00:00 - Exte rnal (age 7+ years) Influenza Virus 2014-02-07 Completed Faiza Se ybold Vaccine, age 6 months 00:00:00 - E xternal and up Influenza Virus 2014-02-07 Completed Faiza Se ybold Vaccine, age 6 months 00:00:00 and up Td- Tetanus & 2014-02-07 Completed Faiza Seyb old Diphtheria Vaccine 00:00:00 - Exte rnal (age 7+ years) Influenza Virus 2014-02-07 Completed Faiza Se ybold Vaccine, age 6 months 00:00:00 - E xternal and up Td- Tetanus & 2014-02-07 Completed Faiza Seyb old Diphtheria Vaccine 00:00:00 - Exte rnal (age 7+ years) Influenza Virus 2014-02-07 Completed Faiza Se ybold Vaccine, age 6 months 00:00:00 - E xternal and up Td- Tetanus & 2014-02-07 Completed Faiza Seyb old Diphtheria Vaccine 00:00:00 - Exte rnal (age 7+ years) Influenza Virus 2014-02-07 Completed Faiza Se ybold Vaccine, age 6 months 00:00:00 - E xternal and up Td- Tetanus & 2014-02-07 Completed Faiza Seyb old Diphtheria Vaccine 00:00:00 - Exte rnal (age 7+ years) Influenza Virus 2014-02-07 Completed Faiza Se ybold Vaccine, age 6 months 00:00:00 - E xternal and up Td- Tetanus & 2014-02-07 Completed Faiza Seyb old Diphtheria Vaccine 00:00:00 - Exte rnal (age 7+ years) Influenza Virus 2014-02-07 Completed Faiza Se ybold Vaccine, age 6 months 00:00:00 - E xternal and up Td- Tetanus & 2014-02-07 Completed Faiza Seyb old Diphtheria Vaccine 00:00:00 (age 7+ years) Influenza Virus 2014-02-07 Completed Faiza Se ybold Vaccine, age 6 months 00:00:00 and up Shingles SQ 2012-09-22 Completed Faiza Seybol d (Zostavax) 00:00:00 Shingles SQ 2012-09-22 Completed Faiza Seybol d (Zostavax) 00:00:00 Shingles SQ 2012-09-22 Completed Faiza Seybol d (Zostavax) 00:00:00 - External Shingles SQ 2012-09-22 Completed Faiza Seybol d (Zostavax) 00:00:00 - External Shingles SQ 2012-09-22 Completed Faiza Seybol d (Zostavax) 00:00:00 - External Shingles SQ 2012-09-22 Completed Faiza Seybol d (Zostavax) 00:00:00 Shingles SQ 2012-09-22 Completed Faiza Seybol d (Zostavax) 00:00:00 - External Shingles SQ 2012-09-22 Completed Faiza Seybol d (Zostavax) 00:00:00 - External Shingles SQ 2012-09-22 Completed Faiza Seybol d (Zostavax) 00:00:00 - External Shingles SQ 2012-09-22 Completed Faiza Seybol d (Zostavax) 00:00:00 - External Shingles SQ 2012-09-22 Completed Faiza Seybol d (Zostavax) 00:00:00 Vital Signs Vital Name Observation Time Observation Value Comments Source Systolic blood 2022-11-08 21:31:00 122 mm[Hg] Faiza Pennybold - pressure External Diastolic blood 2022-11-08 21:31:00 67 mm[Hg] Madeleine aparicio Seybold - pressure External Heart rate 2022-11-08 21:31:00 73 /min Faiza Margaret carlosbobrandie - External Body temperature 2022-11-08 21:31:00 36.56 Mehreen Emilia gonzalez Seybold - External Respiratory rate 2022-11-08 21:31:00 15 /min Emilia gonzalez Seybold - External Body height 2022-11-08 21:31:00 170.2 cm Faiza Margaret carlosbobrandie - External Body weight 2022-11-08 21:31:00 101.152 kg Faiza Margaret carlosbobrandie - External BMI 2022-11-08 21:31:00 34.93 kg/m2 Faiza Margaret carlosbobrandie - External Oxygen saturation in 2022-11-08 21:31:00 99 /min Faiza Fernandez - Arterial blood by External Pulse oximetry Systolic blood 2022-08-12 14:49:00 120 mm[Hg] Faiza Pennybold - pressure External Diastolic blood 2022-08-12 14:49:00 76 mm[Hg] Madeleine y Seybold - pressure External Heart rate 2022-08-12 14:49:00 69 /min Faiza Robles eybold - External Body temperature 2022-08-12 14:49:00 36.5 Mehreen Emilia ey Seybold - External Respiratory rate 2022-08-12 14:49:00 16 /min Emilia ey Seybold - External Body height 2022-08-12 14:49:00 170.2 cm Faiza Robles eybold - External Body weight 2022-08-12 14:49:00 102.604 kg Faiza Robles eybold - External BMI 2022-08-12 14:49:00 35.43 kg/m2 Faiza Robles eybold - External Oxygen saturation in 2022-08-12 14:49:00 95 /min Faiza Fernandez - Arterial blood by External Pulse oximetry Systolic blood 2022-05-13 22:04:00 128 mm[Hg] Faiza Seybold - pressure External Diastolic blood 2022-05-13 22:04:00 50 mm[Hg] Madeleine y Seybold - pressure External Heart rate 2022-05-13 22:04:00 107 /min Faiza Robles eybold - External Body temperature 2022-05-13 22:04:00 36.39 Mehreen Emilia ey Seybold - External Respiratory rate 2022-05-13 22:04:00 15 /min Emilia gonzalez Seybold - External Body height 2022-05-13 22:04:00 170.2 cm Faiza Robles eybold - External Body weight 2022-05-13 22:04:00 98.884 kg Faiza Robles eybold - External BMI 2022-05-13 22:04:00 34.14 kg/m2 Faiza S eybold - External Systolic blood 2022-04-29 22:26:00 136 mm[Hg] Faiza Seybold - pressure External Diastolic blood 2022-04-29 22:26:00 77 mm[Hg] Johnse y Seybold - pressure External Heart rate 2022-04-29 22:26:00 72 /min Faiza S eybold - External Body temperature 2022-04-29 22:26:00 36.61 Mehreen Emilia ey Seybold - External Respiratory rate 2022-04-29 22:26:00 14 /min Emilia ey Seybold - External Body height 2022-04-29 22:26:00 170.2 cm Faiza Robles eybold - External Body weight 2022-04-29 22:26:00 100.699 kg Faiza S eybold - External BMI 2022-04-29 22:26:00 34.77 kg/m2 Faiza S eybold - External Systolic blood 2022-02-08 15:39:00 108 mm[Hg] Faiza Seybold - pressure External Diastolic blood 2022-02-08 15:39:00 42 mm[Hg] Johnse y Seybold - pressure External Heart rate 2022-02-08 15:39:00 73 /min Faiza S eybold - External Body temperature 2022-02-08 15:39:00 36.28 Mehreen Emilia ey Seybold - External Respiratory rate 2022-02-08 15:39:00 15 /min Emilia ey Seybold - External Body height 2022-02-08 15:39:00 170.2 cm Faiza Robles eybold - External Body weight 2022-02-08 15:39:00 100.699 kg Faiza Robles eybold - External BMI 2022-02-08 15:39:00 34.77 kg/m2 Faiza S eybold - External Systolic blood 2022-01-21 15:48:00 138 mm[Hg] Faiza Seybold - pressure External Diastolic blood 2022-01-21 15:48:00 62 mm[Hg] Madeleine y Seybold - pressure External Heart rate 2022-01-21 15:48:00 55 /min Faiza S eybold - External Body temperature 2022-01-21 15:48:00 36.39 Mehreen Emilia ey Seybold - External Respiratory rate 2022-01-21 15:48:00 16 /min Emilia ey Seybold - External Body height 2022-01-21 15:48:00 170.2 cm Faiza S eybold - External Body weight 2022-01-21 15:48:00 99.338 kg Faiza S eybold - External BMI 2022-01-21 15:48:00 34.30 kg/m2 Faiza S eybold - External Systolic blood 2021-12-31 13:48:00 132 mm[Hg] Faiza Seybold - pressure External Diastolic blood 2021-12-31 13:48:00 64 mm[Hg] Johnse y Seybold - pressure External Heart rate 2021-12-31 13:48:00 75 /min Faiza S eybold - External Body temperature 2021-12-31 13:48:00 36.56 Mehreen Emilia ey Seybold - External Respiratory rate 2021-12-31 13:48:00 14 /min Emilia ey Seybold - External Body height 2021-12-31 13:48:00 170.2 cm Faiza S eybold - External Body weight 2021-12-31 13:48:00 101.606 kg Faiza S eybold - External BMI 2021-12-31 13:48:00 35.08 kg/m2 Faiza Robles eybold - External Oxygen saturation in 2021-12-31 13:48:00 99 /min Faiza Pennybold - Arterial blood by External Pulse oximetry Systolic blood 2021-08-06 14:00:00 116 mm[Hg] Faiza Seybold pressure Diastolic blood 2021-08-06 14:00:00 48 mm[Hg] Kelse y Seybold pressure Heart rate 2021-08-06 14:00:00 76 /min Faiza S eybold Body temperature 2021-08-06 14:00:00 36.17 Mehreen Emilia ey Seybold Respiratory rate 2021-08-06 14:00:00 16 /min Emilia ey Seybold Body height 2021-08-06 14:00:00 170.2 cm Faiza S eybold Body weight 2021-08-06 14:00:00 97.523 kg Faiza S eybold BMI 2021-08-06 14:00:00 33.67 kg/m2 Faiza S eybold Systolic blood 2021-05-04 15:05:00 122 mm[Hg] Faiza Seybold pressure Diastolic blood 2021-05-04 15:05:00 48 mm[Hg] Kelse y Seybold pressure Heart rate 2021-05-04 15:05:00 86 /min Faiza S eybold Body temperature 2021-05-04 15:05:00 37 Mehreen Emilia ey Seybold Respiratory rate 2021-05-04 15:05:00 14 /min Emilia ey Seybold Body height 2021-05-04 15:05:00 170.2 cm Faiza S eybold Body weight 2021-05-04 15:05:00 95.709 kg Faiza S eybold BMI 2021-05-04 15:05:00 33.05 kg/m2 Faiza S eybold Systolic blood 2021-02-26 14:25:00 104 mm[Hg] Faiza Seybold pressure Diastolic blood 2021-02-26 14:25:00 60 mm[Hg] Kelse y Seybold pressure Heart rate 2021-02-26 14:25:00 72 /min Faiza S eybold Body temperature 2021-02-26 14:25:00 35.89 Mehreen Emilia ey Seybold Respiratory rate 2021-02-26 14:25:00 16 /min Emilia ey Seybold Body height 2021-02-26 14:25:00 170.2 cm Faiza S eybold Body weight 2021-02-26 14:25:00 96.616 kg Faiza S eybold BMI 2021-02-26 14:25:00 33.36 kg/m2 Faiza S eybold Systolic blood 2021-01-30 16:55:00 98 mm[Hg] Faiza Seybold pressure Diastolic blood 2021-01-30 16:55:00 40 mm[Hg] Kelse y Seybold pressure Body temperature 2021-01-30 16:55:00 36.56 Emhreen Emilia ey Seybold Respiratory rate 2021-01-30 16:55:00 14 /min Emilia ey Seybold Body height 2021-01-30 16:55:00 170.2 cm Faiza S eybold Body weight 2021-01-30 16:55:00 97.796 kg Faiza S eybold BMI 2021-01-30 16:55:00 33.77 kg/m2 Faiza S eybold Procedures This patient has no known procedures. Encounters Start End Encounter Admission Attending Care Care Encounter Source Date/Time Date/Time Type Type Clinicians Facility Department ID 2023-02-182023-02-18 Outpatient FAZIA JUNE [id number] [facility] 08:55:00 08:55:00 REGINE Seybol d 2022-11-22 2022-11-22 Outpatient FAIZA DE LEON [id number] [facility] 08:00:00 08:00:00 JUAN MIGUEL Seybol d 2022-11-14 2022-11-14 Outpatient FAIZA HUSTON [id number] [facility] 00:00:00 00:00:00 SUNI Seybol d 2022-11-08 2022-11-08 Outpatient FAIZA DE LEON [id number] [facility] 16:30:00 16:30:00 JUAN MIGUEL Seybol d 2022-11-08 2022-11-08 Outpatient FAIZA HUSTON [id number] [facility] 00:00:00 00:00:00 SUNI Seybol d 2022-10-31 2022-10-31 Outpatient TREASURE PAREDES [id number] [facility] 08:30:00 08:30:00 Seybol d 2022-10-30 2022-10-30 Outpatient FAIZA HUSTON [id number] [facility] 00:00:00 00:00:00 SUNI Seybol d 2022-08-29 2022-08-29 Outpatient FAIZA LAMA [id number] [facility] 13:00:00 13:00:00 CECILLE Seybol d 2022-08-26 2022-08-26 Outpatient FAIZA LAMA [id number] [facility] 00:00:00 00:00:00 CECILLE Seybol d 2022-08-15 2022-08-15 Outpatient FAIZA HUSTON [id number] [facility] 00:00:00 00:00:00 SNUI Seybol d 2022-08-14 2022-08-14 Outpatient FAIZA LAMA [id number] [facility] 00:00:00 00:00:00 CECILLE Seybol d 2022-08-12 2022-08-12 Outpatient [facility] FAIZA MCQUEEN [id number] [facility] 11:15:00 11:15:00 Seybol d 2022-08-12 2022-08-12 Outpatient HUNDL, FAIZA MCQUEEN [id number] [facility] 10:00:00 10:00:00 CECILLE Seybol d 2022-05-13 2022-05-13 Outpatient PREZAS, FAIZA MCQUEEN [id number] [facility] 16:15:00 16:15:00 KATERYNA Seybol d 2022-05-03 2022-05-03 Outpatient [facility] FAIZA MCQUEEN [id number] [facility] 08:00:00 08:00:00 Seybol d 2022-04-30 2022-04-30 Outpatient PREZAS, FAIZA MCQUEEN [id number] [facility] 00:00:00 00:00:00 KATERYNA Seybol d 2022-04-29 2022-04-29 Outpatient PREZAS, FAIZA MCQUEEN [id number] [facility] 16:30:00 16:30:00 KATERYNA Seybol d 2022-04-25 2022-04-25 Outpatient PREZAS, FAIZA MCQUEEN [id number] [facility] 00:00:00 00:00:00 KATERYNA Seybol d 2022-04-24 2022-04-24 Outpatient PREZAS, FAIZA MCQUEEN [id number] [facility] 00:00:00 00:00:00 KATERYNA Seybol d 2022-04-24 2022-04-24 Outpatient PREZAS, FAIZA MCQUEEN [id number] [facility] 00:00:00 00:00:00 KATERYNA Seybol d 2022-04-24 2022-04-24 Outpatient MAXIMO, FAIZA MCQUEEN [id number] [facility] 00:00:00 00:00:00 SERGEI Seybol d 2022-04-23 2022-04-23 Outpatient PREZAS, FAIZA MCQUEEN [id number] [facility] 08:00:00 08:00:00 KATERYNA Seybol d 2022-04-23 2022-04-23 Outpatient PREZAS, FAIZA MCQUEEN [id number] [facility] 08:00:00 08:00:00 KATERYNA Seybol d 2022-04-23 2022-04-23 Outpatient RICHIE PATEL [id number] [facility] 00:00:00 00:00:00 Seybol d 2022-03-21 2022-03-21 Outpatient PREZAS, FAIZA MCQUEEN [id number] [facility] 00:00:00 00:00:00 KATERYNA Seybol d 2022-02-08 2022-02-08 Outpatient PREZAS, FAIZA MCQUEEN [id number] [facility] 09:45:00 09:45:00 KATERYNA Seybol d 2022-01-21 2022-01-21 Outpatient HUNDL, FAIZA MCQUEEN [id number] [facility] 11:00:00 11:00:00 CECILLE Seybol d 2022-01-08 2022-01-08 Outpatient PREZAS, FAIZA MCQUEEN [id number] [facility] 00:00:00 00:00:00 KATERYNA Seybol d 2022-01-03 2022-01-03 Outpatient PREZAS, FAIZA MCQUEEN [id number] [facility] 00:00:00 00:00:00 KATERYNA Seybol d 2022-01-02 2022-01-02 Outpatient FAIZA MCQUEEN [id number] [facility] 15:35:00 15:35:00 Seybol d 2022-01-02 2022-01-02 Outpatient PREZAS, FAIZA MCQUEEN [id number] [facility] 14:30:00 14:30:00 KATERYNA Seybol d 2022-01-02 2022-01-02 Outpatient PREZAS, FAIZA MCQUEEN [id number] [facility] 00:00:00 00:00:00 KATERYNA Seybol d 2021-12-31 2021-12-31 Outpatient FAIZA HUSTON [id number] [facility] 09:00:00 09:00:00 SUNI Seybol d 2021-12-24 2021-12-24 Outpatient PREZAS, FAIZA MCQUEEN [id number] [facility] 00:00:00 00:00:00 KATERYNA Seybol d 2021-12-19 2021-12-19 Outpatient PREZASFAIZA [id number] [facility] 00:00:00 00:00:00 KATERYNA Seybol d 2021-12-03 2021-12-03 Outpatient TREASURE PAREDES [id number] [facility] 16:15:00 16:15:00 Seybol d 2021-12-03 2021-12-03 Outpatient BETZAIDA FAIZA MCQUEEN [id number] [facility] 00:00:00 00:00:00 SUNI Seybol d 2021-11-23 2021-11-23 Outpatient PILAR [facility]A MCQUEEN [id number] [place] 00:00:00 00:00:00 KATERYNA Seybol d 2021-11-21 2021-11-21 Outpatient PRESHANAE FAIZA MCQUEEN [id number] [place] 00:00:00 00:00:00 KATERYNA Seybol d 2021-11-20 2021-11-20 Outpatient LAB90 FAIZA MCQUEEN [id number] [place] 10:15:00 10:15:00 Seybol d 2021-11-20 2021-11-20 Office Treasure T[place] [id number] [place] 09:15:00 10:00:00 Visit Kateryna Marx [id number] Se ybold [id number] 2021-11-13 2021-11-13 Office [place] [id number] [place] 10:30:00 10:45:00 Visit Suni Marx [id number] Se ybold Somogyi [id number] 2021-11-13 2021-11-13 Outpatient FAIZA HUSTON [id number] [place] 00:00:00 00:00:00 SUNI Seybol d 2021-11-09 2021-11-09 Outpatient BETZAIDA FAIZA MCQUEEN [id number] [place] 00:00:00 00:00:00 USNI Seybol d 2021-11-07 2021-11-07 Office [place] 1.2.840.114 [id number] [place] 09:15:00 09:45:00 Visit Suni Marx [id number] Se ybold Somogyi [id number] 2021-10-31 2021-10-31 Office [place] [id number] [place] 15:15:00 15:45:00 Visit Suni Marx [id number] Se ybold Somogyi [id number] 2021-10-11 2021-10-11 Outpatient FAIZA HUSTON [id number] [place] 00:00:00 00:00:00 SUNI Seybol d 2021-09-25 2021-09-25 Outpatient FAIZA HUSTON [id number] [place] 00:00:00 00:00:00 SUNI Seybol d 2021-09-07 2021-09-07 Outpatient FAIZA HUSTON [id number] [place] 08:15:00 08:15:00 SUNI Seybol d 2021-08-24 2021-08-24 Outpatient COVID-PFIZE FAIZA MCQUEEN [id number] [place] 13:30:00 13:30:00 R VACC, Seybol d AMANDA 2021-08-24 2021-08-24 Outpatient NT90 FAIZA MCQUEEN [id number] [place] 08:00:00 08:00:00 Seybol d 2021-08-23 2021-08-23 Outpatient FAIZA HUSTON [id number] [place] 00:00:00 00:00:00 SUNI Seybol d 2021-08-09 2021-08-09 Outpatient FAIZA HUSTON [id number] [place] 00:00:00 00:00:00 SUNI Seybol d 2021-08-06 2021-08-06 Office [place] [id number] [place] 09:15:00 10:00:00 Visit Suni Marx [id number] Se ybold Somogyi [id number] 2021-08-03 2021-08-03 Outpatient FAIZA TEE [id number] [place] 08:00:00 08:00:00 KATERYNA Seybol d 2021-05-04 2021-05-04 Office [place] [id number] [place] 10:00:00 10:30:00 Visit Kateryna Marx [id number] Se ybold [id number] 2021-05-01 2021-05-01 Outpatient FAIZA HUSTON [id number] [place] 08:00:00 08:00:00 SUNI Seybol d 2021-04-27 2021-04-27 Outpatient FAIZA HUSTON [id number] [place] 08:00:00 08:00:00 SUNI Seybol d 2021-04-09 2021-04-09 Outpatient FAIZA HUSTON [id number] [place] 08:30:00 08:30:00 SUNI Seybol d 2021-03-26 2021-03-26 Outpatient FAIZA HUSTON [id number] [place] 08:00:00 08:00:00 SUNI Seybol d 2021-03-07 2021-03-07 Outpatient FAIZA HUSTON [id number] [place] 00:00:00 00:00:00 SUNI Seybol d 2021-02-26 2021-02-26 Outpatient LAB90 FAIZA MCQUEEN [id number] [place] 09:15:00 09:15:00 Seybol d 2021-02-26 2021-02-26 Office [place] [id number] [place] 08:30:00 09:00:00 Visit Sunizeferino Marx [id number] Se sj Kingogyi [id number] 2021-02-22 2021-02-22 Outpatient FAIZA HUSTON [id number] [place] 00:00:00 00:00:00 SUNI Seybol d 2021-02-01 2021-02-01 Outpatient FAIZA HUSTON [id number] [place] 00:00:00 00:00:00 SUNI Seybol d 2021-01-30 2021-01-30 Office [place] [id number] [place] 10:41:55 11:11:55 Visit Sunizeferino Marx [id number] Se sj Alfonso [id number] 2021-01-29 2021-01-29 Outpatient FAIZA HUSTON [id number] [place] 00:00:00 00:00:00 SUNI Seybol d 2021-01-16 2021-01-16 Outpatient COVID-MODER FAIZA MCQUEEN [id number] [place] 14:50:00 14:50:00 NA BOOSTER, Se sj PAUL 2021-01-16 2021-01-16 Outpatient COVID-MODER FAIZA MCQUEEN [id number] [place] 13:50:00 13:50:00 NA BOOSTER, Se sj PAUL 2020-12-22 2020-12-22 Outpatient FAIZA HUSTON [id number] [place] 00:00:00 00:00:00 SUNI Seybol d 2020-12-18 2020-12-18 Outpatient LAB90 FAIZA MCQUEEN [id number] [place] 08:15:00 08:15:00 Seybol d 2020-11-22 2020-11-22 Outpatient TREASURE PAREDES [id number] [place] 08:00:00 08:00:00 Seybol d 2020-11-20 2020-11-20 Outpatient LAB90 FAIZA MCQUEEN [id number] [place] 09:00:00 09:00:00 Seybol d 2020-11-20 2020-11-20 Outpatient FAIZA HUSTON [id number] [place] 08:00:00 08:00:00 SUNI Seybol d Results This patient has no known results.
--- NOTE | 2022-11-15 08:01 | RAD REPORT ---
EXAM DESCRIPTION: RAD - Shoulder Left 2 View - 11/15/2022 7:53 am CLINICAL HISTORY: PAIN COMPARISON: No comparisons FINDINGS: AC joint degenerative changes are present. Glenohumeral joint degenerative changes are als o noted. The a chromium is laterally downsloping narrowing the subacromial outlet. No acute fracture or dislocation seen.
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
[2022-11-15 08:33] VITALS: BP 146/75; TEMP 97.9; O2SAT 97
== END 2022-11-15 08:18 | disposition home or self-care (01) ==
LOC: ER 07:05
DX: M25.512 Pain in left shoulder (principal)
CPT/HCPCS: 99283

== ENCOUNTER 2023-08-03 15:22 | Observation (INO) | payer OTHER ==
--- OUTSIDE RECORDS SUMMARY | 2023-08-03 15:27 | XMS REPORT | Continuity of Care Document ---
Author Name Unknown Address [address] [facility] [address] [place] [address] [facility] Address [address] [facility] [address] [place] [address] Care Team Providers Care Drop Press Hand Name Role Phone Betzaida CACERES, Suni Alfonso Primary Care Physician CECILLE LAMA Attending Clinician Unavailable NATALIA HERNDON Attending Clinician Unavail able KATERYNA TEE Attending Clinician Unavailable LAB90 Attending Clinician Unavailable REGINE JUNE Attending Clinician UnaBRIT Cade Attending Clinician Unavailable TREASURE PAREDES Attending Clinician UnavailJUAN MIGUEL Hyatt Attending Clinician Unavailab SUNI Lovell Attending Clinician UnaSERGEI Trejo Attending Clinician Unavailable RICHIE PATEL Attending Clinician Unavailable Kateryna Tee DO Attending Clinician [phone] Suni Huston MD Attending Clinician [phone] COVID-[facility] Attending [facility] Unavailable NT90 Attending Clinician Unavailable COVID-BEVERLY CASTILLO Attending Clinic [facility] Unavailable Payers Payer Name Policy Type Policy Number Effective Date Expirati on Date Source [facility] 2 [id number] 2021 00:00:00 Problems Condition Name Condition Details Condition Category Status Onset Date Resolution Date Last Treatment Date Treating Clinician Comments Source Class 1 obesity due to excess calories with serious comorbidit y and body mass index (BMI) of 32.0 to 32.9 in adult Class 1 obesity due to excess calories with serious comorbidit y and body mass index (BMI) of 32.0 to 32.9 in adult Disease Active 2022-0318 00:00: 00 Faiza hernandez Palpitatio ns Palpitatio ns Disease Active 12-20 00:00: 00 Faiza Castanedaa mary Anemia of chronic disease Anemia of chronic disease Disease Active 12-20 00:00: 00 Faiza Castanedaa mary Acute pain of left shoulder Acute pain of left shoulder Disease Active 11-20 00:00: 00 Faiza hernandez Acute right ankle pain Acute right ankle pain Disease Active 11-20 00:00: 00 Faiza Castanedaa mary Acute pain of left shoulder Acute pain of left shoulder Disease Active 11-20 00:00: 00 Faiza Castanedaa mary DM type 2 with diabetic mixed hyperlipid emia (multi HCC) DM type 2 with diabetic mixed hyperlipid emia (multi HCC) Disease Active 08-11 00:00: 00 Faiza hernandez Acute left-sided low back pain without sciatica Acute left-sided low back pain without sciatica Disease Active 2- 00:00: 00 Faiza Castanedaa mary Closed nondisplac ed fracture of middle phalanx of left middle finger with routine healing Closed nondisplac ed fracture of middle phalanx of left middle finger with routine healing Disease Active 2021-0318 00:00: 00 Faiza Castanedaa mary Right hand pain Right hand pain Disease Active 2021-03 012 00:00: 00 Faiza Castanedaa mary Well adult exam Well adult exam Disease Active 11-20 00:00: 00 Faiza hernandez Hyperlipid emia Hyperlipid emia Disease Active 11-20 00:00: 00 Faiza Seybold - Externa l Sebaceous cyst Sebaceous cyst Disease Active 830 00:00: 00 Faiza Fernandez - Externa l Seasonal allergic rhinitis Seasonal allergic rhinitis Disease Active 05-04 00:00: 00 Faiza Razoold - Externa l Cerumen debris on tympanic membrane of both ears Cerumen debris on tympanic membrane of both ears Disease Active 05-04 00:00: 00 Faiza Razoold - Externa l Other dietary vitamin B12 deficiency anemia Other dietary vitamin B12 deficiency anemia Disease Active 2- 00:00: 00 Faiza Fernandez - Externa l Hypertensi on Hypertensi on Disease Active 08-31 00:00: 00 Faiza Fernandez - Externa l Type 2 diabetes mellitus with stage 3a chronic kidney disease, without long-term current use of insulin (multi HCC) Type 2 diabetes mellitus with stage 3a chronic kidney disease, without long-term current use of insulin (multi HCC) Disease Active 08-31 00:00: 00 Faiza Razoold - Externa l Chronic kidney disease, stage III (moderate) Chronic kidney disease, stage III (moderate) Disease Active 08-31 00:00: 00 Faiza Fernandez - Externa l Social History Social Habit Start Date Stop Date Quantity Comments Source Gender identity Emilia Fernandez - External Sexual orientation Alfredito Fernandez - External Exposure to SARS-CoV-2 (event) Not sure Faiza gustafson Alcohol intake 2023-03-10 00:00:00 2023-03-10 00:00:00 Lifetime non-drinker (finding) Faiza Fernandez - External History of Social function 2022-12-09 00:00:00 2022-12-09 00:00:00 Faiza Fernandez - External Tobacco use and exposure 2022-08-12 00:00:00 2022-08-12 00:00:00 Smokeless tobacco non-user Faiza Fernandez - External Education - What is the highest level of school you have completed or the highest degree you have received? 2021-11-20 00:00:00 2021-11-20 00:00:00 Associate degree: academic program Faiza Seybold - External Sex Assigned At 1950 00:00:00 1950 00:00:00 Faiza Vela Smoking Status Start Date Stop Date Source Never smoked tobacco Faiza Vela Medications Ordered Medication Name Filled Medication Name Start Date Stop Date Current Medication? Ordering Clinician Indication Dosage Frequency Signature (SIG) Comments Components Source Aspirin 81 MG oral Tablet Delayed Response 2022-03 08:17: 27 Yes 81mg Take 1 tablet (81 mg total) by mouth daily. Faiza hernandez Cyanocobala min (Vitamin B-12) 1000 MCG oral Tablet 2022-03 08:17: 27 Yes 1000ug Take 1 tablet (1,000 mcg total) by mouth daily. Faiza hernandez Cyanocobala min (Vitamin B-12) 1000 MCG oral Tablet 12-20 11:03: 40 Yes 1000ug Take 1 tablet (1,000 mcg total) by mouth daily. Faiza hernandez Aspirin 81 MG oral Tablet Delayed Response 12-20 10:50: 54 Yes 81mg Take 1 tablet (81 mg total) by mouth daily. Faiza hernandez Loratadine (Claritin Reditabs) 10 MG oral TABLET DISPERSIBLE 12-20 00:00: 00 Yes [id number] 10mg QD Take 1 tablet (10 mg total) by mouth daily as needed for allergies. Faiza hernandez Pioglitazon e HCl 15 MG oral Tablet 12-16 00:00: 00 Yes [id number] 15mg Take 1 tablet (15 mg total) by mouth daily. Faiza hernandez LISINOPRIL- HCTZ 20-12.5 MG oral Tablet 11-26 00:00: 00 Yes [id number] 1{tbl} Take 1 tablet by mouth daily. Faiza hernandez Cyanocobala min (Vitamin B-12) 1000 MCG oral Tablet 11-20 16:14: 40 11-20 00:00 :00 No 1000ug Take 1 tablet (1,000 mcg total) by mouth daily Faiza hernandez Aspirin 81 MG oral Tablet Delayed Response 11-15 14:06: 05 Yes 81mg Take 1 tablet (81 mg total) by mouth daily. Faiza hernandez Cyanocobala min (Vitamin B-12) 1000 MCG oral Tablet 11-08 16:32: 19 Yes 1000ug Take 1 tablet (1,000 mcg total) by mouth daily Faiza hernandez Aspirin 81 MG oral Tablet Delayed Response 11-08 16:32: 19 Yes 81mg Take 1 tablet (81 mg total) by mouth daily Faiza hernandez FLUTICASONE PROPIONATE, NASAL, 50 MCG/ACT nasal Suspension 11-08 00:00: 00 03-10 00:00 :00 No [id number] 50ug Use 1 spray (50 mcg total) in each nostril daily Faiza hernandez Loratadine (Claritin Reditabs) 10 MG oral TABLET DISPERSIBLE 11-08 00:00: 00 12-20 00:00 :00 No [id number] 10mg Take 1 tablet (10 mg total) by mouth daily Faiza hernandez Carvedilol (Coreg) 3.125 MG oral Tablet 08-27 00:00: 00 Yes [id number] 3.125mg Take 1 tablet (3.125 mg total) by mouth every other day Faiza hernandez Cyanocobala min (Vitamin B-12) 1000 MCG oral Tablet 08-12 09:53: 39 Yes 1000ug Take 1 tablet (1,000 mcg total) by mouth daily Faiza hernandez Aspirin 81 MG oral Tablet Delayed Response 08-12 09:53: 39 Yes 81mg Take 1 tablet (81 mg total) by mouth daily Faiza hernandez Cyanocobala min (Vitamin B-12) 1000 MCG oral Tablet 05-13 16:06: 54 Yes 1000ug Take 1,000 mcg by mouth daily Faiza hernandez Aspirin 81 MG oral Tablet Delayed Response 05-13 16:06: 54 Yes 81mg Take 81 mg by mouth daily Faiza hernandez Tramadol HCl (ULTRAM) 50 MG oral Tablet 04-29 00:00: 11-20 00:00 :00 No [id number] 50mg Q.5D Take 1 tablet (50 mg total) by mouth 2 times daily as needed for pain Faiza hernandez Tramadol HCl (ULTRAM) 50 MG oral Tablet 04-24 00:00: 00 04-29 00:00 :00 No [id number] 50mg Q.5D Take 1 tablet (50 mg total) by mouth 2 times daily as needed for pain Faiza hernandez Cyanocobala min (Vitamin B-12) 1000 MCG oral Tablet 2021-03 09:42: 26 Yes 1000ug Take 1,000 mcg by mouth daily Faiza hernandez Aspirin 81 MG oral Tablet Delayed Response 2021-03 09:42: 26 Yes 81mg Take 81 mg by mouth daily Faiza hernandez Cyanocobala min (Vitamin B-12) 1000 MCG oral Tablet 2021-03 10:53: 07 Yes 1000ug Take 1,000 mcg by mouth daily Faiza hernandez Aspirin 81 MG oral Tablet Delayed Response 2021-03 10:53: 07 Yes 81mg Take 81 mg by mouth daily Faiza hernandez Cyanocobala min (Vitamin B-12) 1000 MCG oral Tablet 2021-03 08:49: 18 Yes 1000ug Take 1,000 mcg by mouth daily Faiza hernandez Aspirin 81 MG oral Tablet Delayed Response 2021-03 08:49: 18 Yes 81mg Take 81 mg by mouth daily Faiza hernandez NEOMYCIN-PO LYMYXIN-HC, OTIC, 1 % otic Solution 2021-03 00:00: 00 11-20 00:00 :00 No [id number] 2[drp] Place 2 drops into both ears 3 times daily Faiza hernandez Carvedilol (Coreg) 3.125 MG oral Tablet 11-20 00:00: 00 Yes [id number] 3.125mg Take 1 tablet (3.125 mg total) by mouth every other day Faiza hernandez LISINOPRIL- HCTZ 20-12.5 MG oral Tablet 11-20 00:00: 00 Yes [id number] 1{tbl} Take 1 tablet by mouth daily Faiza hernandez Pioglitazon e HCl 15 MG oral Tablet 11-20 00:00: 00 Yes [id number] 15mg Take 1 tablet (15 mg total) by mouth daily Faiza hernandez Amoxicillin -Pot Clavulanate 875-125 MG oral Tablet 11-13 00:00: 00 12-31 00:00 :00 No [id number] 1{tbl} Take 1 tablet by mouth 2 times daily Faiza hernandez NEOMYCIN-PO LYMYXIN-HC, OTIC, 1 % otic Solution 10-31 00:00: 00 12-31 00:00 :00 No [id number] 2[drp] Place 2 drops into both ears 3 times daily Faiza hernandez Cyanocobala min (Vitamin B-12) 1000 MCG oral Tablet 08-06 09:07: 24 Yes 1000ug Take 1,000 mcg by mouth daily Faiza Fernandez Aspirin 81 MG oral Tablet Delayed Response 08-06 09:07: 24 Yes 81mg Take 81 mg by mouth daily Faiza Fernandez Cyanocobala min (Vitamin B-12) 1000 MCG oral Tablet 05-04 09:11: 51 Yes 1000ug Take 1,000 mcg by mouth daily Faiza Fernandez Aspirin (Aspirin 81) 81 MG oral Tablet Delayed Response 05-04 09:10: 35 Yes 81mg Take 81 mg by mouth every other day Faiza Fernandez Carvedilol (Coreg) 3.125 MG oral Tablet 05-04 00:00: 00 Yes [id number] 3.125mg Take 1 tablet (3.125 mg total) by mouth 2 times daily (with meals) Faiza Fernandez FLUTICASONE PROPIONATE, NASAL, 50 MCG/ACT nasal Suspension 05-04 00:00: 00 11-08 00:00 :00 No [id number] 50ug Use 1 spray (50 mcg total) in each nostril daily Faiza hernandez Loratadine (Claritin Reditabs) 10 MG oral TABLET DISPERSIBLE 2- 00:00: 00 11-08 00:00 :00 No [id number] 10mg Take 1 tablet (10 mg total) by mouth daily Faiza hernandez Aspirin (Aspirin 81) 81 MG oral Tablet Delayed Response 2020-03 08:31: 35 Yes 81mg Take 81 mg by mouth every other day Faiza Fernandez Aspirin (Aspirin 81) 81 MG oral Tablet Delayed Response 2020-03 10:57: 52 Yes 81mg Take 81 mg by mouth every other day Faiza Fernandez Escitalopra m Oxalate 10 MG oral Tablet 2020-03 0 00:00: 00 Yes Faiza Fernandez Alprazolam 0.25 MG oral Tablet 2020-03 0- 00:00: 00 05-04 00:00 :00 No [id number] Take 1 tablet by mouth as needed before stressful event Faiza Fernandez Carvedilol 12.5 MG oral Tablet 09-01 00:00: 00 05-04 00:00 :00 No [id number] 12.5mg Take 1 tablet (12.5 mg total) by mouth 2 times daily (with meals) Faiza Fernandez Pioglitazon e HCl 15 MG oral Tablet 6 00:00: 00 Yes [id number] 15mg Take 1 tablet (15 mg total) by mouth daily Faiza Fernandez LISINOPRIL- HCTZ 20-12.5 MG oral Tablet 6-10 00:00: 00 Yes [id number] 1{tbl} Take 1 tablet by mouth daily Faiza Fernandez Immunizations Ordered Immunization Name Filled Immunization Name Date Status Comments Source Tdap- (Boostrix, Adacel) 2022-07-12 00:00:00 Completed Faiza Fernandez - External Tdap- (Boostrix, Adacel) 2022-07-12 00:00:00 Completed Faiza Fernandez - External Tdap- (Boostrix, Adacel) 2022-07-12 00:00:00 Completed Faiza Seybold - External Tdap- (Boostrix, Adacel) 2022-07-12 00:00:00 Completed Faiza Seybold - External Influenza Virus Vaccine, Quadrivalent, High Dose, Age 65 And Up 2021-12-03 00:00:00 Completed Faiza Seybold - External Influenza Virus Vaccine, Quadrivalent, High Dose, Age 65 And Up 2021-12-03 00:00:00 Completed Faiza Seybold - External Influenza Virus Vaccine, Quadrivalent, High Dose, Age 65 And Up 2021-12-03 00:00:00 Completed Faiza Seybold - External Influenza Virus Vaccine, Quadrivalent, High Dose, Age 65 And Up 2021-12-03 00:00:00 Completed Faiza Seybold - External Influenza Virus Vaccine, Quadrivalent, High Dose, Age 65 And Up 2021-12-03 00:00:00 Completed Faiza Seybold - External Influenza Virus Vaccine, Quadrivalent, High Dose, Age 65 And Up 2021-12-03 00:00:00 Completed Faiza Seybold - External Influenza Virus Vaccine, Quadrivalent, High Dose, Age 65 And Up 2021-12-03 00:00:00 Completed Faiza Seybold - External Influenza Virus Vaccine, Quadrivalent, High Dose, Age 65 And Up 2021-12-03 00:00:00 Completed Faiza Seybold - External Influenza Virus Vaccine, Quadrivalent, High Dose, Age 65 And Up 2021-12-03 00:00:00 Completed Faiza Seybold - External Pneumococcal Vaccine, Polysaccharide 2021-11-20 00:00:00 Completed Faiza Seybold - External Pneumococcal Vaccine, Polysaccharide 2021-11-20 00:00:00 Completed Faiza Seybold - External Pneumococcal Vaccine, Polysaccharide 2021-11-20 00:00:00 Completed Faiza Seybold - External Pneumococcal Vaccine, Polysaccharide 2021-11-20 00:00:00 Completed Faiza Seybold - External Pneumococcal Vaccine, Polysaccharide 2021-11-20 00:00:00 Completed Faiza Seybold - External Pneumococcal Vaccine, Polysaccharide 2021-11-20 00:00:00 Completed Faiza Seybold - External Pneumococcal Vaccine, Polysaccharide 2021-11-20 00:00:00 Completed Faiza Seybold - External Pneumococcal Vaccine, Polysaccharide 2021-11-20 00:00:00 Completed Faiza Seybold - External Pneumococcal Vaccine, Polysaccharide 2021-11-20 00:00:00 Completed Faiza Seybold - External COVID-19 VACCINE PFIZER 12+ (Flanagan cap) 2021-08-24 00:00:00 Completed Faiza Seybold - External COVID-19 VACCINE PFIZER 12+ (Flanagan cap) 2021-08-24 00:00:00 Completed Faiza Seybold - External COVID-19 VACCINE PFIZER 12+ (Flanagan cap) 2021-08-24 00:00:00 Completed Faiza Seybold - External COVID-19 VACCINE PFIZER 12+ (Flanagan cap) 2021-08-24 00:00:00 Completed Faiza Seybold - External COVID-19 VACCINE PFIZER 12+ (Flanagan cap) 2021-08-24 00:00:00 Completed Faiza Seybold - External COVID-19 VACCINE PFIZER 12+ (Flanagan cap) 2021-08-24 00:00:00 Completed Faiza Seybold - External COVID-19 VACCINE PFIZER 12+ (Flanagan cap) 2021-08-24 00:00:00 Completed Faiza Seybold - External COVID-19 VACCINE PFIZER 12+ (Flanagan cap) 2021-08-24 00:00:00 Completed Faiza Seybold - External COVID-19 VACCINE PFIZER 12+ (Flanagan cap) 2021-08-24 00:00:00 Completed Faiza Seybold - External Covid-19 Vaccine Moderna (Spikevax), Mrna-lnp, Ozzie Protein, Pf 2021-01-16 00:00:00 Completed Faiza Seybold Covid-19 Vaccine Moderna (Spikevax), Mrna-lnp, Ozzie Protein, Pf 2021-01-16 00:00:00 Completed Faiza Seybold Covid-19 Vaccine Moderna (Spikevax), Mrna-lnp, Ozzie Protein, Pf 2021-01-16 00:00:00 Completed Faiza Seybold - External Covid-19 Vaccine Moderna (Spikevax), Mrna-lnp, Ozzie Protein, Pf 2021-01-16 00:00:00 Completed Faiza Seybold - External Covid-19 Vaccine Moderna (Spikevax), Mrna-lnp, Ozzie Protein, Pf 2021-01-16 00:00:00 Completed Faiza Seybold - External Covid-19 Vaccine Moderna (Spikevax), Mrna-lnp, Ozzie Protein, Pf 2021-01-16 00:00:00 Completed Faiza Seybold - External Covid-19 Vaccine (Moderna), Mrna-lnp, Ozzie Protein, Pf, 100 Mcg/0.5ml,IM 2021-01-16 00:00:00 Completed Faiza Seybold Covid-19 Vaccine Moderna (Spikevax), Mrna-lnp, Ozzie Protein, Pf 2021-01-16 00:00:00 Completed Faiza Seybold - External Covid-19 Vaccine Moderna (Spikevax), Mrna-lnp, Ozzie Protein, Pf 2021-01-16 00:00:00 Completed Faiza Seybold - External Covid-19 Vaccine Moderna (Spikevax), Mrna-lnp, Ozzie Protein, Pf 2021-01-16 00:00:00 Completed Faiza Seybold - External Covid-19 Vaccine Moderna (Spikevax), Mrna-lnp, Ozzie Protein, Pf 2021-01-16 00:00:00 Completed Faiza Seybold - External Covid-19 Vaccine Moderna (Spikevax), Mrna-lnp, Ozzie Protein, Pf 2021-01-16 00:00:00 Completed Faiza Seybold - External Covid-19 Vaccine (Moderna), Mrna-lnp, Ozzie Protein, Pf, 100 Mcg/0.5ml,IM 2021-01-16 00:00:00 Completed Faiza Seybold Influenza Virus Vaccine, Quadrivalent, High Dose, Age 65 And Up 2020-11-22 00:00:00 Completed Faiza Seybold Influenza Virus Vaccine, Quadrivalent, High Dose, Age 65 And Up 2020-11-22 00:00:00 Completed Faiza Seybold Influenza Virus Vaccine, Quadrivalent, High Dose, Age 65 And Up 2020-11-22 00:00:00 Completed Faiza Seybold - External Influenza Virus Vaccine, Quadrivalent, High Dose, Age 65 And Up 2020-11-22 00:00:00 Completed Faiza Seybold - External Influenza Virus Vaccine, Quadrivalent, High Dose, Age 65 And Up 2020-11-22 00:00:00 Completed Faiza Seybold - External Influenza Virus Vaccine, Quadrivalent, High Dose, Age 65 And Up 2020-11-22 00:00:00 Completed Faiza Seybold - External Influenza Virus Vaccine, Quadrivalent, High Dose, Age 65 And Up 2020-11-22 00:00:00 Completed Faiza Seybold Influenza Virus Vaccine, Quadrivalent, High Dose, Age 65 And Up 2020-11-22 00:00:00 Completed Faiza Seybold - External Influenza Virus Vaccine, Quadrivalent, High Dose, Age 65 And Up 2020-11-22 00:00:00 Completed Faiza Seybold - External Influenza Virus Vaccine, Quadrivalent, High Dose, Age 65 And Up 2020-11-22 00:00:00 Completed Faiza Seybold - External Influenza Virus Vaccine, Quadrivalent, High Dose, Age 65 And Up 2020-11-22 00:00:00 Completed Faiza Seybold - External Influenza Virus Vaccine, Quadrivalent, High Dose, Age 65 And Up 2020-11-22 00:00:00 Completed Faiza Seybold - External Influenza Virus Vaccine, Quadrivalent, High Dose, Age 65 And Up 2020-11-22 00:00:00 Completed Faiza Fernandez Covid-19 Vaccine Moderna (Spikevax), Mrna-lnp, Ozzie Protein, Pf 2020-07-07 00:00:00 Completed Faiza Razoold Covid-19 Vaccine Moderna (Spikevax), Mrna-lnp, Ozzie Protein, Pf 2020-07-07 00:00:00 Completed Faiza Seybold Covid-19 Vaccine Moderna (Spikevax), Mrna-lnp, Ozzie Protein, Pf 2020-07-07 00:00:00 Completed Faiza Seybold - External Covid-19 Vaccine Moderna (Spikevax), Mrna-lnp, Ozzie Protein, Pf 2020-07-07 00:00:00 Completed Faiza Seybold - External Covid-19 Vaccine Moderna (Spikevax), Mrna-lnp, Ozzie Protein, Pf 2020-07-07 00:00:00 Completed Faiza Seybold - External Covid-19 Vaccine (Moderna), Mrna-lnp, Ozzie Protein, Pf, 100 Mcg/0.5ml,IM 2020-07-07 00:00:00 Completed Faiza Seybold Covid-19 Vaccine Moderna (Spikevax), Mrna-lnp, Ozzie Protein, Pf 2020-07-07 00:00:00 Completed Faiza Seybold - External Covid-19 Vaccine Moderna (Spikevax), Mrna-lnp, Ozzie Protein, Pf 2020-07-07 00:00:00 Completed Faiza Seybold - External Covid-19 Vaccine Moderna (Spikevax), Mrna-lnp, Ozzie Protein, Pf 2020-07-07 00:00:00 Completed Faiza Seybold - External Covid-19 Vaccine Moderna (Spikevax), Mrna-lnp, Ozzie Protein, Pf 2020-07-07 00:00:00 Completed Faiza Seybold - External Covid-19 Vaccine Moderna (Spikevax), Mrna-lnp, Ozzie Protein, Pf 2020-07-07 00:00:00 Completed Faiza Seybold - External Covid-19 Vaccine Moderna (Spikevax), Mrna-lnp, Ozzie Protein, Pf 2020-07-07 00:00:00 Completed Faiza Seybold - External Covid-19 Vaccine (Moderna), Mrna-lnp, Ozzie Protein, Pf, 100 Mcg/0.5ml,IM 2020-07-07 00:00:00 Completed Faiza Seybold Covid-19 Vaccine Moderna (Spikevax), Mrna-lnp, Ozzie Protein, Pf 2020-06-09 00:00:00 Completed Faiza Seybold Covid-19 Vaccine Moderna (Spikevax), Mrna-lnp, Ozzie Protein, Pf 2020-06-09 00:00:00 Completed Faiza Seybold Covid-19 Vaccine Moderna (Spikevax), Mrna-lnp, Ozzie Protein, Pf 2020-06-09 00:00:00 Completed Faiza Seybold - External Covid-19 Vaccine Moderna (Spikevax), Mrna-lnp, Ozzie Protein, Pf 2020-06-09 00:00:00 Completed Faiza Seybold - External Covid-19 Vaccine Moderna (Spikevax), Mrna-lnp, Ozzie Protein, Pf 2020-06-09 00:00:00 Completed Faiza Seybold - External Covid-19 Vaccine Moderna (Spikevax), Mrna-lnp, Ozzie Protein, Pf 2020-06-09 00:00:00 Completed Faiza Seybold - External Covid-19 Vaccine (Moderna), Mrna-lnp, Ozzie Protein, Pf, 100 Mcg/0.5ml,IM 2020-06-09 00:00:00 Completed Faiza Seybold Covid-19 Vaccine Moderna (Spikevax), Mrna-lnp, Ozzie Protein, Pf 2020-06-09 00:00:00 Completed Faiza Seybold - External Covid-19 Vaccine Moderna (Spikevax), Mrna-lnp, Ozzie Protein, Pf 2020-06-09 00:00:00 Completed Faiza Seybold - External Covid-19 Vaccine Moderna (Spikevax), Mrna-lnp, Ozzie Protein, Pf 2020-06-09 00:00:00 Completed Faiza Seybold - External Covid-19 Vaccine Moderna (Spikevax), Mrna-lnp, Ozzie Protein, Pf 2020-06-09 00:00:00 Completed Faiza Seybold - External Covid-19 Vaccine Moderna (Spikevax), Mrna-lnp, Ozzie Protein, Pf 2020-06-09 00:00:00 Completed Faiza Seybold - External Covid-19 Vaccine (Moderna), Mrna-lnp, Ozzie Protein, Pf, 100 Mcg/0.5ml,IM 2020-06-09 00:00:00 Completed Faiza Seybold Shingles IM (Shingrix) 2019-09-23 00:00:00 Completed Faiza Seybold Shingles IM (Shingrix) 2019-09-23 00:00:00 Completed Faiza Seybold Shingles IM (Shingrix) 2019-09-23 00:00:00 Completed Faiza Seybold - External Shingles IM (Shingrix) 2019-09-23 00:00:00 Completed Faiza Seybold - External Shingles IM (Shingrix) 2019-09-23 00:00:00 Completed Faiza Seybold - External Shingles IM (Shingrix) 2019-09-23 00:00:00 Completed Faiza Seybold Shingles IM (Shingrix) 2019-09-23 00:00:00 Completed Faiza Seybold - External Shingles IM (Shingrix) 2019-09-23 00:00:00 Completed Faiza Seybold - External Shingles IM (Shingrix) 2019-09-23 00:00:00 Completed Faiza Seybold - External Shingles IM (Shingrix) 2019-09-23 00:00:00 Completed Faiza Seybold - External Shingles IM (Shingrix) 2019-09-23 00:00:00 Completed Faiza Seybold - External Shingles IM (Shingrix) 2019-09-23 00:00:00 Completed Faiza Seybold - External Shingles IM (Shingrix) 2019-09-23 00:00:00 Completed Faiza Seybold Shingles IM (Shingrix) 2019-05-21 00:00:00 Completed Faiza Seybold Shingles IM (Shingrix) 2019-05-21 00:00:00 Completed Faiza Seybold Shingles IM (Shingrix) 2019-05-21 00:00:00 Completed Faiza Seybold - External Shingles IM (Shingrix) 2019-05-21 00:00:00 Completed Faiza Seybold - External Shingles IM (Shingrix) 2019-05-21 00:00:00 Completed Faiza Seybold - External Shingles IM (Shingrix) 2019-05-21 00:00:00 Completed Faiza Seybold Shingles IM (Shingrix) 2019-05-21 00:00:00 Completed Faiza Seybold - External Shingles IM (Shingrix) 2019-05-21 00:00:00 Completed Faiza Seybold - External Shingles IM (Shingrix) 2019-05-21 00:00:00 Completed Faiza Seybold - External Shingles IM (Shingrix) 2019-05-21 00:00:00 Completed Faiza Seybold - External Shingles IM (Shingrix) 2019-05-21 00:00:00 Completed Faiza Seybold - External Shingles IM (Shingrix) 2019-05-21 00:00:00 Completed Faiza Seybold - External Shingles IM (Shingrix) 2019-05-21 00:00:00 Completed Faiza Seybold Influenza Virus Vaccine, age 6 months and up 2019-01-08 00:00:00 Completed Faiza Seybold Influenza Virus Vaccine, age 6 months and up 2019-01-08 00:00:00 Completed Faiza Seybold Influenza Virus Vaccine, age 6 months and up 2019-01-08 00:00:00 Completed Faiza Seybold - External Influenza Virus Vaccine, age 6 months and up 2019-01-08 00:00:00 Completed Faiza Seybold - External Influenza Virus Vaccine, age 6 months and up 2019-01-08 00:00:00 Completed Faiza Seybold Influenza Virus Vaccine, age 6 months and up 2019-01-08 00:00:00 Completed Faiza Seybold - External Influenza Virus Vaccine, age 6 months and up 2019-01-08 00:00:00 Completed Faiza Seybold - External Influenza Virus Vaccine, age 6 months and up 2019-01-08 00:00:00 Completed Faiza Seybold - External Influenza Virus Vaccine, age 6 months and up 2019-01-08 00:00:00 Completed Faiza Seybold - External Influenza Virus Vaccine, age 6 months and up 2019-01-08 00:00:00 Completed Faiza Seybold - External Influenza Virus Vaccine, age 6 months and up 2019-01-08 00:00:00 Completed Faiza Seybold - External Influenza Virus Vaccine, age 6 months and up 2019-01-08 00:00:00 Completed Faiza Seybold - External Influenza Virus Vaccine, age 6 months and up 2019-01-08 00:00:00 Completed Faiza Seybold Influenza Virus Vaccine, age 6 months and up 2018-01-06 00:00:00 Completed Faiza Seybold Influenza Virus Vaccine, age 6 months and up 2018-01-06 00:00:00 Completed Faiza Seybold Influenza Virus Vaccine, age 6 months and up 2018-01-06 00:00:00 Completed Faiza Seybold - External Influenza Virus Vaccine, age 6 months and up 2018-01-06 00:00:00 Completed Faiza Seybold - External Influenza Virus Vaccine, age 6 months and up 2018-01-06 00:00:00 Completed Faiza Seybold Influenza Virus Vaccine, age 6 months and up 2018-01-06 00:00:00 Completed Faiza Seybold - External Influenza Virus Vaccine, age 6 months and up 2018-01-06 00:00:00 Completed Faiza Seybold - External Influenza Virus Vaccine, age 6 months and up 2018-01-06 00:00:00 Completed Faiza Seybold - External Influenza Virus Vaccine, age 6 months and up 2018-01-06 00:00:00 Completed Faiza Seybold - External Influenza Virus Vaccine, age 6 months and up 2018-01-06 00:00:00 Completed Faiza Seybold - External Influenza Virus Vaccine, age 6 months and up 2018-01-06 00:00:00 Completed Faiza Seybold - External Influenza Virus Vaccine, age 6 months and up 2018-01-06 00:00:00 Completed Faiza Seybold - External Influenza Virus Vaccine, age 6 months and up 2018-01-06 00:00:00 Completed Faiza Seybold Influenza Virus Vaccine, age 6 months and up 2016-12-09 00:00:00 Completed Faiza Seybold Influenza Virus Vaccine, No Preserv, age 6 months and up 2016-12-09 00:00:00 Completed Faiza Seybold Influenza Virus Vaccine, age 6 months and up 2016-12-09 00:00:00 Completed Faiza Seybold Influenza Virus Vaccine, No Preserv, age 6 months and up 2016-12-09 00:00:00 Completed Faiza Seybold Influenza Virus Vaccine, age 6 months and up 2016-12-09 00:00:00 Completed Faiza Seybold - External Influenza Virus Vaccine, No Preserv, age 6 months and up 2016-12-09 00:00:00 Completed Faiza Seybold - External Influenza Virus Vaccine, age 6 months and up 2016-12-09 00:00:00 Completed Faiza Seybold - External Influenza Virus Vaccine, No Preserv, age 6 months and up 2016-12-09 00:00:00 Completed Faiza Seybold - External Influenza Virus Vaccine, age 6 months and up 2016-12-09 00:00:00 Completed Faiza Seybold Influenza Virus Vaccine, age 6 months and up 2016-12-09 00:00:00 Completed Faiza Seybold - External Influenza Virus Vaccine, No Preserv, age 6 months and up 2016-12-09 00:00:00 Completed Faiza Seybold - External Influenza Virus Vaccine, age 6 months and up 2016-12-09 00:00:00 Completed Faiza Seybold - External Influenza Virus Vaccine, No Preserv, age 6 months and up 2016-12-09 00:00:00 Completed Faiza Seybold - External Influenza Virus Vaccine, No Preserv, age 6 months and up 2016-12-09 00:00:00 Completed Faiza Seybold Influenza Virus Vaccine, age 6 months and up 2016-12-09 00:00:00 Completed Faiza Seybold - External Influenza Virus Vaccine, No Preserv, age 6 months and up 2016-12-09 00:00:00 Completed Faiza Seybold - External Influenza Virus Vaccine, age 6 months and up 2016-12-09 00:00:00 Completed Faiza Seybold - External Influenza Virus Vaccine, No Preserv, age 6 months and up 2016-12-09 00:00:00 Completed Faiza Seybold - External Influenza Virus Vaccine, age 6 months and up 2016-12-09 00:00:00 Completed Faiza Seybold - External Influenza Virus Vaccine, No Preserv, age 6 months and up 2016-12-09 00:00:00 Completed Faiza Seybold - External Influenza Virus Vaccine, age 6 months and up 2016-12-09 00:00:00 Completed Faiza Seybold - External Influenza Virus Vaccine, No Preserv, age 6 months and up 2016-12-09 00:00:00 Completed Faiza Seybold - External Influenza Virus Vaccine, age 6 months and up 2016-12-09 00:00:00 Completed Faiza Seybold - External Influenza Virus Vaccine, No Preserv, age 6 months and up 2016-12-09 00:00:00 Completed Faiza Seybold - External Influenza Virus Vaccine, age 6 months and up 2016-12-09 00:00:00 Completed Faiza Seybold Influenza Virus Vaccine, No Preserv, age 6 months and up 2016-12-09 00:00:00 Completed Faiza Seybold Pneumococcal Vaccine, Polysaccharide 2016-01-22 00:00:00 Completed Faiza Seybold Pneumococcal Vaccine, Polysaccharide 2016-01-22 00:00:00 Completed Faiza Seybold Pneumococcal Vaccine, Polysaccharide 2016-01-22 00:00:00 Completed Faiza Seybold - External Pneumococcal Vaccine, Polysaccharide 2016-01-22 00:00:00 Completed Faiza Seybold - External Pneumococcal Vaccine, Polysaccharide 2016-01-22 00:00:00 Completed Faiza Seybold - External Pneumococcal Vaccine, Polysaccharide 2016-01-22 00:00:00 Completed Faiza Seybold Pneumococcal Vaccine, Polysaccharide 2016-01-22 00:00:00 Completed Faiza Seybold - External Pneumococcal Vaccine, Polysaccharide 2016-01-22 00:00:00 Completed Faiza Seybold - External Pneumococcal Vaccine, Polysaccharide 2016-01-22 00:00:00 Completed Faiza Seybold - External Pneumococcal Vaccine, Polysaccharide 2016-01-22 00:00:00 Completed Faiza Seybold - External Pneumococcal Vaccine, Polysaccharide 2016-01-22 00:00:00 Completed Faiza Seybold - External Pneumococcal Vaccine, Polysaccharide 2016-01-22 00:00:00 Completed Faiza Seybold - External Pneumococcal Vaccine, Polysaccharide 2016-01-22 00:00:00 Completed Faiza Seybold Td- Tetanus & Diphtheria Vaccine (age 7+ years) 2014-02-07 00:00:00 Completed Faiza Seybold Influenza Virus Vaccine, age 6 months and up 2014-02-07 00:00:00 Completed Faiza Seybold Td- Tetanus & Diphtheria Vaccine (age 7+ years) 2014-02-07 00:00:00 Completed Faiza Seybold Influenza Virus Vaccine, age 6 months and up 2014-02-07 00:00:00 Completed Faiza Seybold Td- Tetanus & Diphtheria Vaccine (age 7+ years) 2014-02-07 00:00:00 Completed Faiza Seybold - External Influenza Virus Vaccine, age 6 months and up 2014-02-07 00:00:00 Completed Faiza Seybold - External Td- Tetanus & Diphtheria Vaccine (age 7+ years) 2014-02-07 00:00:00 Completed Faiza Seybold Td- Tetanus & Diphtheria Vaccine (age 7+ years) 2014-02-07 00:00:00 Completed Faiza Seybold - External Influenza Virus Vaccine, age 6 months and up 2014-02-07 00:00:00 Completed Faiza Seybold - External Influenza Virus Vaccine, age 6 months and up 2014-02-07 00:00:00 Completed Faiza Seybold Td- Tetanus & Diphtheria Vaccine (age 7+ years) 2014-02-07 00:00:00 Completed Faiza Seybold - External Influenza Virus Vaccine, age 6 months and up 2014-02-07 00:00:00 Completed Faiza Seybold - External Td- Tetanus & Diphtheria Vaccine (age 7+ years) 2014-02-07 00:00:00 Completed Faiza Seybold - External Influenza Virus Vaccine, age 6 months and up 2014-02-07 00:00:00 Completed Faiza Seybold - External Td- Tetanus & Diphtheria Vaccine (age 7+ years) 2014-02-07 00:00:00 Completed Faiza Seybold - External Influenza Virus Vaccine, age 6 months and up 2014-02-07 00:00:00 Completed Faiza Seybold - External Td- Tetanus & Diphtheria Vaccine (age 7+ years) 2014-02-07 00:00:00 Completed Faiza Seybold - External Influenza Virus Vaccine, age 6 months and up 2014-02-07 00:00:00 Completed Faiza Seybold - External Td- Tetanus & Diphtheria Vaccine (age 7+ years) 2014-02-07 00:00:00 Completed Faiza Seybold - External Influenza Virus Vaccine, age 6 months and up 2014-02-07 00:00:00 Completed Faiza Seybold - External Td- Tetanus & Diphtheria Vaccine (age 7+ years) 2014-02-07 00:00:00 Completed Faiza Seybold - External Influenza Virus Vaccine, age 6 months and up 2014-02-07 00:00:00 Completed Faiza Seybold - External Td- Tetanus & Diphtheria Vaccine (age 7+ years) 2014-02-07 00:00:00 Completed Faiza Seybold - External Influenza Virus Vaccine, age 6 months and up 2014-02-07 00:00:00 Completed Faiza Seybold - External Td- Tetanus & Diphtheria Vaccine (age 7+ years) 2014-02-07 00:00:00 Completed Faiza Seybold Influenza Virus Vaccine, age 6 months and up 2014-02-07 00:00:00 Completed Faiza Razoold Shingles SQ (Zostavax) 2012-09-22 00:00:00 Completed Faiza Seybold Shingles SQ (Zostavax) 2012-09-22 00:00:00 Completed Faiza Seybold Shingles SQ (Zostavax) 2012-09-22 00:00:00 Completed Faiza Seybold - External Shingles SQ (Zostavax) 2012-09-22 00:00:00 Completed Faiza Seybold - External Shingles SQ (Zostavax) 2012-09-22 00:00:00 Completed Faiza Seybold - External Shingles SQ (Zostavax) 2012-09-22 00:00:00 Completed Faiza Seybold Shingles SQ (Zostavax) 2012-09-22 00:00:00 Completed Faiza Seybold - External Shingles SQ (Zostavax) 2012-09-22 00:00:00 Completed Faiza Seybold - External Shingles SQ (Zostavax) 2012-09-22 00:00:00 Completed Faiza Seybold - External Shingles SQ (Zostavax) 2012-09-22 00:00:00 Completed Faiza Seybold - External Shingles SQ (Zostavax) 2012-09-22 00:00:00 Completed Faiza Seybold - External Shingles SQ (Zostavax) 2012-09-22 00:00:00 Completed Faiza Seybold - External Shingles SQ (Zostavax) 2012-09-22 00:00:00 Completed Faiza Fernandez Td- Tetanus & Diphtheria Vaccine (age 7+ years) Unknown Completed Faiza Seybol d - External Influenza Virus Vaccine, age 6 months and up Unknown Completed Faiza Seybold - External Influenza Virus Vaccine, age 6 months and up Unknown Completed Faiza Seybold - External Influenza Virus Vaccine, age 6 months and up Unknown Completed Faiza Seybold - External Influenza Virus Vaccine, age 6 months and up Unknown Completed Faiza Pennybold - External Pneumococcal Vaccine, Polysaccharide Unknown Completed Faiza Seybol d - External Shingles SQ (Zostavax) Unknown Completed Faiza Seybold - External Shingles IM (Shingrix) Unknown Completed Faiza Seybold - External Shingles IM (Shingrix) [facility]ine Moderna (Spikevax), Mrna-lnp, Ozzie Protein, Pf Unknown Completed [facility] Seybold - External Covid-19 Vaccine Moderna (Spikevax), Mrna-lnp, Ozzie Protein, Pf Unknown Completed [facility] - External Influenza Virus Vaccine, No Preserv, age 6 months and up Unknown Completed [facility] eybold - External Influenza Virus Vaccine, Quadrivalent, High Dose, Age 65 And Up Unknown Completed [facility] eybold - External Covid-19 Vaccine Moderna (Spikevax), Mrna-lnp, Ozzie Protein, Pf Unknown Completed [facility] - External COVID-19 VACCINE PFIZER 12+ (Flanagan cap) Unknown [facility], Polysaccharide [facility] Vaccine, Quadrivalent, High Dose, Age 65 And Up Unknown Completed [facility] External Tdap- (Boostrix, Adacel) Unknown Completed [facility] - External Td- Tetanus & Diphtheria Vaccine (age 7+ years) Unknown [facility] Vaccine, age 6 months and up Unknown Completed [facility] - External Influenza Virus Vaccine, age 6 months and up Unknown Completed [facility] - External Influenza Virus Vaccine, age 6 months and up Unknown [facility] Influenza Virus Vaccine, age 6 months and up Unknown Completed [facility] - External Pneumococcal Vaccine, Polysaccharide Unknown Completed [facility] - External Shingles SQ (Zostavax) Unknown [facility] Shingles IM (Shingrix) Unknown Com[facility] - External Shingles IM (Shingrix) Unknown [facility] Vaccine Moderna (Spikevax), Mrna-lnp, Ozzie Protein, Pf Unknown Completed [facility] Seybold - External Covid-19 Vaccine Moderna (Spikevax), Mrna-lnp, Ozzie Protein, Pf Unknown [facility] Influenza Virus Vaccine, No Preserv, age 6 months and up Unknown Completed [facility] eybold - External Influenza Virus Vaccine, Quadrivalent, High Dose, Age 65 And Up Unknown Completed Faiza Robles eybold - External Covid-19 Vaccine Moderna (Spikevax), Mrna-lnp, Ozzie Protein, Pf Unknown Completed Faiza Razoold - External COVID-19 VACCINE PFIZER 12+ (Flanagan cap) Unknown Completed Faiza Razoold - External Pneumococcal Vaccine, Polysaccharide Unknown Completed Faiza Razool d - External Influenza Virus Vaccine, Quadrivalent, High Dose, Age 65 And Up Unknown Completed Faiza gonzalezbold - External Tdap- (Boostrix, Adacel) Unknown Completed Faiza Razoold - External Influenza vaccine, quadrivalent, adjuvanted, 65+ Unknown Completed Faiza Moise ld - External Pneumococcal Vaccine, Polysaccharide Unknown Completed Faiza Razool d - External Vital Signs Vital Name Observation Time Observation Value Comments S ource Systolic blood pressure 2023-03-10 14:13:00 115 mm[Hg] Faiza Seybo ld - External Diastolic blood pressure 2023-03-10 14:13:00 89 mm[Hg] Faiza Pennybo ld - External Heart rate 2023-03-10 14:13:00 67 /min Kelse y Seybold - External Body temperature 2023-03-10 14:13:00 36.78 Mehreen Faiza Pennybold - External Respiratory rate 2023-03-10 14:13:00 18 /min Faiza Pennybold - External Body height 2023-03-10 14:13:00 170.2 cm Emilia gonzalez Seybold - External Body weight 2023-03-10 14:13:00 94.348 kg Emilia gonzalez Seybold - External BMI 2023-03-10 14:13:00 32.58 kg/m2 Emilia gonzalez Seybold - External Oxygen saturation in Arterial blood by Pulse oximetry 2023-03-10 14:13:00 100 /min Faiza Pennybo ld - External Systolic blood pressure 2022-12-20 15:51:00 137 mm[Hg] Faiza Seybo ld - External Diastolic blood pressure 2022-12-20 15:51:00 78 mm[Hg] Faiza Seybo ld - External Heart rate 2022-12-20 15:51:00 74 /min Kelse y Seybold - External Body temperature 2022-12-20 15:51:00 36.28 Mehreen Faiza Seybold - External Respiratory rate 2022-12-20 15:51:00 20 /min Faiza Seybold - External Body height 2022-12-20 15:51:00 170.2 cm Emilia ey Seybold - External Body weight 2022-12-20 15:51:00 98.431 kg Emilia ey Seybold - External BMI 2022-12-20 15:51:00 33.99 kg/m2 Emilia ey Seybold - External Systolic blood pressure 2022-11-20 21:00:00 143 mm[Hg] Faiza Seybo ld - External Diastolic blood pressure 2022-11-20 21:00:00 83 mm[Hg] Faiza Seybo ld - External Heart rate 2022-11-20 21:00:00 91 /min Kelse y Seybold - External Body temperature 2022-11-20 21:00:00 36.56 Mehreen Faiza Seybold - External Respiratory rate 2022-11-20 21:00:00 15 /min Faiza Seybold - External Body height 2022-11-20 21:00:00 170.2 cm Emilia ey Seybold - External Body weight 2022-11-20 21:00:00 110.678 kg Emilia ey Seybold - External BMI 2022-11-20 21:00:00 38.22 kg/m2 Emilia ey Seybold - External Oxygen saturation in Arterial blood by Pulse oximetry 2022-11-20 21:00:00 99 /min Faiza Seybo ld - External Systolic blood pressure 2022-11-15 18:59:00 122 mm[Hg] Faiza Seybo ld - External Diastolic blood pressure 2022-11-15 18:59:00 50 mm[Hg] Faiza Seybo ld - External Heart rate 2022-11-15 18:59:00 77 /min Kelse y Seybold - External Body temperature 2022-11-15 18:59:00 36.56 Mehreen Faiza Seybold - External Respiratory rate 2022-11-15 18:59:00 16 /min Faiza Seybold - External Body height 2022-11-15 18:59:00 170.2 cm Emilia ey Seybold - External Body weight 2022-11-15 18:59:00 101.606 kg Emilia ey Seybold - External BMI 2022-11-15 18:59:00 35.08 kg/m2 Emilia ey Seybold - External Oxygen saturation in Arterial blood by Pulse oximetry 2022-11-15 18:59:00 99 /min Faiza Razoo ld - External Systolic blood pressure 2022-11-08 21:31:00 122 mm[Hg] Faiza Seybo ld - External Diastolic blood pressure 2022-11-08 21:31:00 67 mm[Hg] Faiza Seybo ld - External Heart rate 2022-11-08 21:31:00 73 /min Kelse y Seybold - External Body temperature 2022-11-08 21:31:00 36.56 Mehreen Faiza Seybold - External Respiratory rate 2022-11-08 21:31:00 15 /min Faiza Seybold - External Body height 2022-11-08 21:31:00 170.2 cm Emilia ey Seybold - External Body weight 2022-11-08 21:31:00 101.152 kg Emilia ey Seybold - External BMI 2022-11-08 21:31:00 34.93 kg/m2 Emilia ey Seybold - External Oxygen saturation in Arterial blood by Pulse oximetry 2022-11-08 21:31:00 99 /min Faiza Razoo ld - External Systolic blood pressure 2022-08-12 14:49:00 120 mm[Hg] Faiza Seybo ld - External Diastolic blood pressure 2022-08-12 14:49:00 76 mm[Hg] Faiza Pennybo ld - External Heart rate 2022-08-12 14:49:00 69 /min Kelse y Seybold - External Body temperature 2022-08-12 14:49:00 36.5 Mehreen Faiza Seybold - External Respiratory rate 2022-08-12 14:49:00 16 /min Faiza Seybold - External Body height 2022-08-12 14:49:00 170.2 cm Emilia ey Seybold - External Body weight 2022-08-12 14:49:00 102.604 kg Emilia ey Seybold - External BMI 2022-08-12 14:49:00 35.43 kg/m2 Emilia ey Seybold - External Oxygen saturation in Arterial blood by Pulse oximetry 2022-08-12 14:49:00 95 /min Faiza Seybo ld - External Systolic blood pressure 2022-05-13 22:04:00 128 mm[Hg] Faiza Seybo ld - External Diastolic blood pressure 2022-05-13 22:04:00 50 mm[Hg] Faiza Seybo ld - External Heart rate 2022-05-13 22:04:00 107 /min Kelse y Seybold - External Body temperature 2022-05-13 22:04:00 36.39 Mehreen Faiza Seybold - External Respiratory rate 2022-05-13 22:04:00 15 /min Faiza Seybold - External Body height 2022-05-13 22:04:00 170.2 cm Emilia ey Seybold - External Body weight 2022-05-13 22:04:00 98.884 kg Emilia ey Seybold - External BMI 2022-05-13 22:04:00 34.14 kg/m2 Emilia ey Seybold - External Systolic blood pressure 2022-04-29 22:26:00 136 mm[Hg] Afiza Seybo ld - External Diastolic blood pressure 2022-04-29 22:26:00 77 mm[Hg] Faiza Seybo ld - External Heart rate 2022-04-29 22:26:00 72 /min Kelse y Seybold - External Body temperature 2022-04-29 22:26:00 36.61 Mehreen Faiza Seybold - External Respiratory rate 2022-04-29 22:26:00 14 /min Faiza Seybold - External Body height 2022-04-29 22:26:00 170.2 cm Emilia ey Seybold - External Body weight 2022-04-29 22:26:00 100.699 kg Emilia ey Seybold - External BMI 2022-04-29 22:26:00 34.77 kg/m2 Emilia ey Seybold - External Systolic blood pressure 2022-02-08 15:39:00 108 mm[Hg] Faiza Seybo ld - External Diastolic blood pressure 2022-02-08 15:39:00 42 mm[Hg] Faiza Seybo ld - External Heart rate 2022-02-08 15:39:00 73 /min Kelse y Seybold - External Body temperature 2022-02-08 15:39:00 36.28 Mehreen Faiza Seybold - External Respiratory rate 2022-02-08 15:39:00 15 /min Faiza Seybold - External Body height 2022-02-08 15:39:00 170.2 cm Emilia ey Seybold - External Body weight 2022-02-08 15:39:00 100.699 kg Emilia ey Seybold - External BMI 2022-02-08 15:39:00 34.77 kg/m2 Emilia ey Seybold - External Systolic blood pressure 2022-01-21 15:48:00 138 mm[Hg] Faiza Seybo ld - External Diastolic blood pressure 2022-01-21 15:48:00 62 mm[Hg] Faiza Seybo ld - External Heart rate 2022-01-21 15:48:00 55 /min Kelse y Seybold - External Body temperature 2022-01-21 15:48:00 36.39 Mehreen Faiza Seybold - External Respiratory rate 2022-01-21 15:48:00 16 /min Faiza Seybold - External Body height 2022-01-21 15:48:00 170.2 cm Emilia ey Seybold - External Body weight 2022-01-21 15:48:00 99.338 kg Emilia ey Seybold - External BMI 2022-01-21 15:48:00 34.30 kg/m2 Emilia ey Seybold - External Systolic blood pressure 2021-12-31 13:48:00 132 mm[Hg] Faiza Seybo ld - External Diastolic blood pressure 2021-12-31 13:48:00 64 mm[Hg] Faiza Seybo ld - External Heart rate 2021-12-31 13:48:00 75 /min Kelse y Seybold - External Body temperature 2021-12-31 13:48:00 36.56 Mehreen Faiza Seybold - External Respiratory rate 2021-12-31 13:48:00 14 /min Faiza Seybold - External Body height 2021-12-31 13:48:00 170.2 cm Emilia ey Seybold - External Body weight 2021-12-31 13:48:00 101.606 kg Emilia ey Seybold - External BMI 2021-12-31 13:48:00 35.08 kg/m2 Emilia ey Seybold - External Oxygen saturation in Arterial blood by Pulse oximetry 2021-12-31 13:48:00 99 /min Faiza Seybo ld - External Systolic blood pressure 2021-08-06 14:00:00 116 mm[Hg] Faiza Seybo ld Diastolic blood pressure 2021-08-06 14:00:00 48 mm[Hg] Faiza Seybo ld Heart rate 2021-08-06 14:00:00 76 /min Kelse y Seybold Body temperature 2021-08-06 14:00:00 36.17 Mehreen Faiza Seybold Respiratory rate 2021-08-06 14:00:00 16 /min Faiza Seybold Body height 2021-08-06 14:00:00 170.2 cm Emilia ey Seybold Body weight 2021-08-06 14:00:00 97.523 kg Emilia ey Seybold BMI 2021-08-06 14:00:00 33.67 kg/m2 Emilia ey Seybold Systolic blood pressure 2021-05-04 15:05:00 122 mm[Hg] Faiza Seybo ld Diastolic blood pressure 2021-05-04 15:05:00 48 mm[Hg] Faiza Seybo ld Heart rate 2021-05-04 15:05:00 86 /min Kelse y Seybold Body temperature 2021-05-04 15:05:00 37 Mehreen Faiza Seybold Respiratory rate 2021-05-04 15:05:00 14 /min Faiza Seybold Body height 2021-05-04 15:05:00 170.2 cm Emilia ey Seybold Body weight 2021-05-04 15:05:00 95.709 kg Emilia ey Seybold BMI 2021-05-04 15:05:00 33.05 kg/m2 Emilia ey Seybold Systolic blood pressure 2021-02-26 14:25:00 104 mm[Hg] Faiza Seybo ld Diastolic blood pressure 2021-02-26 14:25:00 60 mm[Hg] Faiza Seybo ld Heart rate 2021-02-26 14:25:00 72 /min Kelse y Seybold Body temperature 2021-02-26 14:25:00 35.89 Mehreen Faiza Seybold Respiratory rate 2021-02-26 14:25:00 16 /min Faiza Seybold Body height 2021-02-26 14:25:00 170.2 cm Emilia ey Seybold Body weight 2021-02-26 14:25:00 96.616 kg Emilia ey Seybold BMI 2021-02-26 14:25:00 33.36 kg/m2 Emilia ey Seybold Systolic blood pressure 2021-01-30 16:55:00 98 mm[Hg] Faiza Seybo ld Diastolic blood pressure 2021-01-30 16:55:00 40 mm[Hg] Faiza Seybo ld Body temperature 2021-01-30 16:55:00 36.56 Mehreen Faiza Seybold Respiratory rate 2021-01-30 16:55:00 14 /min Faiza Seybold Body height 2021-01-30 16:55:00 170.2 cm Emilia ey Seybold Body weight 2021-01-30 16:55:00 97.796 kg Emilia ey Seybold BMI 2021-01-30 16:55:00 33.77 kg/m2 Emilia ey Seybold Encounters Start Date/Time End Date/Time Encounter Type Admission Type Attending [facility] Care Department Encounter ID Source 2023-08-29 10:30:00 2023-08-29 10:30:00 Outpatient CECILLE LAMA [id number] Faiza sj 2023-08-03 00:00:00 2023-08-03 00:00:00 Outpatient NATALIA HERNDON [id number] Faiza sj 2023-08-01 00:00:00 2023-08-01 00:00:00 Outpatient KATERYNA TEE [id number] Faiza Fernandez 2023-08-01 00:00:00 2023-08-01 00:00:00 Outpatient KATERYNA TEE [id number] Faiza Fernandez 2023-07-31 07:50:00 2023-07-31 07:50:00 Outpatient LAB90 FAIZA MCQUEEN [id number] Faiza [facility]ley 2023-07-22 14:00:00 2023-07-22 14:00:00 Outpatient PREZAS, KATERYNA MCQUEEN FAIZA [id number] Faiza [facility] 2023-07-22 00:00:00 2023-07-22 00:00:00 Outpatient PREZAS, KATERYNA FAIZA MCQUEEN [id number] Faiza [facility] 2023-06-09 08:30:00 2023-06-09 08:30:00 Outpatient PREZAS, KATERYNA FAIZA FAIZA [id number] Faiza [facility] 2023-06-02 00:00:00 2023-06-02 00:00:00 Outpatient PREZAS, KATERYNA FAIZA MCQUEEN [id number] Faiza [facility] 2023-06-02 00:00:00 2023-06-02 00:00:00 Outpatient PREZAS, KATERYNA FAIZA MCQUEEN [id number] [facility] 2023-04-22 08:55:00 2023-04-22 08:55:00 Outpatient SLADE, REGINE FAIZA MCQUEEN [id number] Faiza [facility] 2023-03-28 00:00:00 2023-03-28 00:00:00 Outpatient BOUCHERBRIT FAIZA MCQUEEN [id number] Faiza Seybold 2023-03-21 15:45:00 2023-03-21 15:45:00 Outpatient REGGIETREASURE FAIZA MCQUEEN [id number] Faiza Seybold 2023-03-11 00:00:00 2023-03-11 00:00:00 Outpatient PREZAS, KATERYNA FAIZA MCQUEEN [id number] Faiza Seybold 2023-03-11 00:00:00 2023-03-11 00:00:00 Outpatient PREZAS, KATERYNA FAIZA MCQUEEN [id number] Faiza Seybold 2023-03-10 09:00:00 2023-03-10 09:00:00 Outpatient LAB90 FAIZA MCQUEEN [id number] Faiza Seybold 2023-03-10 08:30:00 2023-03-10 08:30:00 Outpatient PREZAS, KATERYNA MCQUEEN [id number] Faiza Seybold 2023-02-18 08:55:00 2023-02-18 08:55:00 Outpatient SLADEREGINE Dumont FAIZA MCQUEEN [id number] [facility] 2022-12-29 00:00:00 2022-12-29 00:00:00 Outpatient PREZASKATERYNA FAIZA MCQUEEN [id number] [facility] 2022-12-27 12:30:00 2022-12-27 12:30:00 Outpatient TREASURE PAREDES FAIZA MCQUEEN [id number] [facility] 2022-12-20 10:45:00 2022-12-20 10:45:00 Outpatient PREZAS, KATERYNA FAIZA MCQUEEN [id number] [facility] 2022-12-16 00:00:00 2022-12-16 00:00:00 Outpatient PREZAS, KATERYNA FAIZA MCQUEEN [id number] [facility] 2022-12-06 00:00:00 2022-12-06 00:00:00 Outpatient DAINACECILLE FAIZA MCQUEEN [id number] [facility] 2022-12-05 13:30:00 2022-12-05 13:30:00 Outpatient REGGIE, TREASURE FAIZA MCQUEEN [id number] [facility] 2022-11-25 00:00:00 2022-11-25 00:00:00 Outpatient PREZAS, KATERYNA FAIZA MCQUEEN [id number] [facility] 2022-11-22 08:00:00 2022-11-22 08:00:00 Outpatient JUAN MIGUEL DE LEON [id number] [facility] 2022-11-20 16:30:00 2022-11-20 16:30:00 Outpatient PREZAS KATERYNA FAIZA MCQUEEN [id number] [facility] 2022-11-15 15:00:00 2022-11-15 15:00:00 Outpatient JUAN MIGUEL DE LEON [id number] [facility] 2022-11-15 00:00:00 2022-11-15 00:00:00 Outpatient SUNI HUSTON [id number] [facility] 2022-11-14 00:00:00 2022-11-14 00:00:00 Outpatient SUNI HUSTON FAIZA MCQUEEN [id number] [facility] 2022-11-08 16:30:00 2022-11-08 16:30:00 Outpatient JUAN MIGUEL DE LEON FAIZA MCQUEEN [id number] [facility] 2022-11-08 00:00:00 2022-11-08 00:00:00 Outpatient SUNI HUSTON FAIZA MCQUEEN [id number] [facility] 2022-10-31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
[2023-08-03] MEDS ORDERED: LEVALBUTEROL 1.25 MG/3 ML NEB ONE (15:48)
[2023-08-03 16:04] LABS: Absolute Basophils 0.1 K/uL (0-0.5); Absolute Eosinophils 0.4 K/uL (0-0.5); Absolute Neutrophil 4.3 K/uL (1.8-8.0); Basophils % 1.5 % (0-1.3); Eosinophils % 4.8 % (0-4.4); Hematocrit 29.7 % (39.6-49.0); Hemoglobin 10.1 g/dL (13.6-17.9); Lymphocytes % 33.7 % (15.3-44.8); MCH 31.9 pg (27.0-35.0); MPV 7.4 fL (7.6-11.3); Nucleated Red Blood Cells % 0.1 % (0-0); Platelets 364 thou/uL (152-406); RBC Red Blood Cell Count 3.17 M/uL (4.33-5.43); Red Cell Distribution Width 14.3 % (12.1-15.2)
[2023-08-03 16:07] LABS: PT Prothrombin Time 12.6 SECONDS (9.5-12.5); Protime INR 1.15
[2023-08-03 16:24] LABS: Anion Gap 7.1 mEq/L (5.0-15.0); Magnesium 1.8 mg/dL (1.6-2.4); Potassium 4.1 mEq/L (3.5-5.1); Troponin High Sensitivity 9.3 pg/mL (<58.9)
--- NOTE | 2023-08-03 17:12 | RAD REPORT ---
EXAM DESCRIPTION: Funmilayot Single View08/03/2023 4:24 pm CLINICAL HISTORY: SOB COMPARISON: No comparisons TECHNIQUE: Portable AP view of the chest. FINDINGS: Central interstitial prominence. Patchy left basilar alveolar opacities. Suggestion of tra ce bilateral effusions. No pneumothorax. The cardiomediastinal contours are unremarkable. IMPRESSION: Findings suggesting central congestion or mild pulmonary edema.
--- NOTE | 2023-08-03 17:49 | EDPHYS ---
Physician Documentation [facility] Name: Cristopher Mercado Age: 72 yrs Sex: Male : 1950 Arrival Date: 08/03/2023 Time: 15:22 Bed 15 Private MD: ED Physician John Johnson HPI: 08/02 15:50 This 72 yrs old Male presents to ER via Ambulatory with complaints of Breathing cp Difficulty, Palpitations. 15:50 The patient has shortness of breath with light activity. Onset: The symptoms/episode cp began/occurred yesterday. Duration: The symptoms are intermittent. Associated signs and symptoms: Pertinent positives: palpitations, Pertinent negatives: chest pain, fever, vomiting. Severity of symptoms: in the emergency department the symptoms are unchanged despite home interventions. Historical: - Allergies: 23:09 No Known Allergies; cm10 - PMHx: 15:45 diabetes mellitus; Hypertensive disorder; iw - PSHx: 15:45 intranasal sx ; for broken nose; iw - Immunization history:: Adult Immunizations up to date. - Infectious Disease History:: Denies. - Social history:: Smoking status: Patient denies any tobacco usage or history of. ROS: 15:55 Constitutional: Negative for body aches, chills, fever, poor PO intake, cp 15:55 Eyes: Negative for injury, pain, redness, and discharge, cp 15:55 ENT: Negative for drainage from ear(s), ear pain, sore throat, difficulty swallowing, difficulty handling secretions, 15:55 Cardiovascular: Positive for palpitations, Negative for chest pain, 15:55 Respiratory: Positive for shortness of breath, on exertion. Negative for cough, wheezing, 15:55 Abdomen/GI: Negative for abdominal pain, vomiting, diarrhea, constipation, 15:55 Neuro: Negative for altered mental status, dizziness, headache, syncope, weakness, 15:55 All other systems are negative, Exam: 15:52 ECG was reviewed by the Attending Physician. cp 16:00 Constitutional: The patient appears in no acute distress, alert, awake, cp non-diaphoretic, non-toxic, well developed, well nourished, obese, 16:00 Head/Face: Normocephalic, atraumatic. cp 16:00 Eyes: Periorbital structures: appear normal, Conjunctiva: normal, no exudate, no injection, Sclera: no appreciated abnormality, Lids and lashes: appear normal, bilaterally, 16:00 ENT: External ear(s): are unremarkable, Nose: is normal, Mouth: Lips: moist, Oral mucosa: pink and intact, Posterior pharynx: Airway: no evidence of obstruction, patent, 16:00 Neck: ROM/movement: is normal, is supple, without pain, no range of motions limitations, 16:00 Chest/axilla: Inspection: normal, 16:00 Cardiovascular: Rate: normal, Rhythm: irregular, Edema: ankle edema, that is very mild, JVD: is not appreciated, 16:00 Respiratory: the patient does not display signs of respiratory distress, Respirations: normal, no use of accessory muscles, no retractions, labored breathing, Breath sounds: decreased breath sounds, that are mild, throughout, stridor, is not appreciated, wheezing: is not appreciated, 16:00 Abdomen/GI: Inspection: abdomen appears normal, Palpation: abdomen is soft and non-tender, in all quadrants, 16:00 Back: pain, is absent, ROM is normal, 16:00 Neuro: Orientation: to person, place \T\ time. Mentation: is normal, Motor: moves all fours, strength is normal, Sensation: is normal, Vital Signs: 16:02 BP 146 / 63; Pulse 64; Resp 17 S; Temp 98.4(TE); Pulse Ox 99% on R/A; Pain 0/10; as6 17:00 BP 126 / 55; Pulse 60; Resp 13 S; Pulse Ox 98% on R/A; as6 18:16 BP 150 / 56; Pulse 79; Resp 19 S; Pulse Ox 95% on R/A; as6 22:00 BP 105 / 59; Pulse 76; Resp 16; Temp 97.1(IR); Pulse Ox 99% ; cm10 22:00 Weight 96.16 kg; Height 5 ft. 7 in. ; Pain 0/10; cm10 22:00 Body Mass Index 33.20 (96.16 kg, 170.18 cm) cm10 16:02 Pain Scale: Adult as6 22:00 Pain Scale: Adult cm10 MDM: 15:39 Patient medically screened. cp 16:00 Differential diagnosis: CHF exacerbation, Chronic Obstructive Pulmonary Disease cp Myocardial Infarction pneumonia, pulmonary edema, Pulmonary Embolism Unstable Angina. 17:30 Data reviewed: vital signs, nurses notes, lab test result(s), EKG, radiologic studies, cp plain films, and as a result, I will admit patient. 17:30 I considered the following discharge prescriptions or medication management in the emergency department Medications were administered in the Emergency Department. See MAR. Independent interpretation of the following test(s) in the Emergency Department EKG: See my EKG interpretation above. Test considered but Not performed: CT: chest with contrast to r/o PE. Counseling: I had a detailed discussion with the patient and/or guardian regarding the historical points, exam findings, and any diagnostic results supporting the discharge/admit diagnosis, lab results, radiology results, the need for further work-up and treatment in the hospital. Response to treatment: the patient's symptoms have mildly improved after treatment. 17:45 Management of patient was discussed with the following: Hospitalist: DR Fox will admit after discussion. 05 15:47 Order name: Basic Metabolic Panel; Complete Time: 16:34 08/02 16:34 Interpretation: Normal except: NA 134; BUN 31; CRE 1.61; GFR 45. 08/02 15:47 Order name: CBC with Diff; Complete Time: 16:34 08/02 16:34 Interpretation: Normal except: RBC 3.17; HGB 10.1; HCT 29.7; MPV 7.4; EOSINOPHIL % 4.8; cp BASO% 1.5. 08/02 15:47 Order name: Magnesium; Complete Time: 16:34 08/02 15:47 Order name: NT PRO-BNP; Complete Time: 16:34 08/02 15:47 Order name: PT-INR; Complete Time: 16:34 08/02 15:47 Order name: Troponin HS; Complete Time: 16:34 08/02 18:29 Order name: D-Dimer [facility] 08/02 18:30 Order name: Basic Metabolic Panel [facility] 08/02 18:30 Order name: Basic Metabolic Panel [facility] 08/02 18:30 Order name: Basic Metabolic Panel [facility] 08/02 18:30 Order name: Basic Metabolic Panel [facility] 08/02 18:30 Order name: CBC with Automated Diff [facility] 08/02 18:30 Order name: CBC with Automated Diff [facility] 08/02 18:30 Order name: CBC with Automated Diff [facility] 08/02 18:30 Order name: CBC with Automated Diff [facility] 08/02 18:38 Order name: NT PRO-BNP [facility] 08/02 18:38 Order name: NT PRO-BNP [facility] 08/02 18:38 Order name: NT PRO-BNP [facility] 08/02 18:38 Order name: NT PRO-BNP [facility] 08/02 18:39 Order name: Hemoglobin A1c [facility] 08/02 18:39 Order name: Hemoglobin A1c [facility] 08/02 18:39 Order name: Lipid Profile [facility] 08/02 18:39 Order name: Lipid Profile [facility] 08/02 18:43 Order name: Troponin High Sensitivity [facility] 08/02 15:47 Order name: XRAY Chest (1 view); Complete Time: 17:21 cp 08/02 17:21 Interpretation: Report review. 08/02 17:08 Order name: CT Chest Wo Con cp 08/02 18:28 Order name: Echo with Doppler [facility] 08/02 19:08 Order name: Vent Perfusion VQ Scan [facility] 08/02 15:47 Order name: EKG; Complete Time: 15:47 cp 08/02 15:47 Order name: Cardiac monitoring; Complete Time: 15:58 cp 08/02 15:47 Order name: EKG - Nurse/Tech; Complete Time: 15:58 cp 08/02 15:47 Order name: IV Saline Lock; Complete Time: 15:58 cp 08/02 15:47 Order name: Labs collected and sent; Complete Time: 15:58 cp 08/02 15:47 Order name: O2 Per Protocol; Complete Time: 15:47 cp 08/02 15:47 Order name: O2 Sat Monitoring; Complete Time: 15:47 cp EC:52 Rate is 72 beats/min. Rhythm is irregular. NE interval is normal. QRS interval is cp normal. QT interval is normal. T waves are Inverted in leads III, aVR. Interpreted by me. Reviewed by me. Administered Medications: 15:58 Drug: Levalbuterol Inhalation 1.25 mg Inhalation once Route: Inhalation; as6 18:05 Drug: Furosemide IVP 20 mg IVP once; give over 2 minutes Route: IVP; Site: right as6 antecubital; 23:09 Follow up: Response: No adverse reaction cm10 Disposition Summary: 08/03/23 17:48 Hospitalization Ordered Notes: Hospitalization Status: Observation cp Provider: Prince camila Evangelista Condition: Stable cp Problem: new cp Symptoms: have improved cp Bed/Room Type: Standard cp Location: Telemetry/MedSurg (observation)(08/04/23 04:32) jb4 Room Assignment: 218(08/04/23 04:32) jb4 Diagnosis - Dyspnea cp - Palpitations cp Forms: - Medication Reconciliation Form cp - SBAR form cp - Leadership Thank You Letter cp Signatures: Dispatcher [employer] EDMS Sierra Keane, RN RN iw Jalil Maxwell PA PA cp Tarun Naranjo, RN RN jb4 Catracho Ramon, RN RN as6 Jerri Alston RN RN cm10 Corrections: (The following items were deleted from the chart) 15:48 15:47 BASIC METABOLIC PANEL+C.LAB.BRZ ordered. EDMS EDMS 15:48 15:47 CBC+H.LAB.BRZ ordered. EDMS EDMS 15:48 15:47 MAGNESIUM+C.LAB.BRZ ordered. EDMS EDMS 15:48 15:47 PROBNP+C.LAB.BRZ ordered. EDMS EDMS 15:48 15:47 PROTIME (+INR)+COAG.LAB.BRZ ordered. EDMS EDMS 15:48 15:47 Troponin High Sensitivity+C.LAB.BRZ ordered. EDMS EDMS 17:08 17:08 Thorax Wo Con+CT.RAD.BRZ ordered. EDMS EDMS 19:20 17:48 Telemetry/MedSurg (observation) cp jb4 19:20 17:48 cp jb4 08/03 04:32 0512 19:20 [facility] ER HOLD jb4 jb4 08/03 04:32 0512 19:20 ERHOLD- jb4 jb4
--- NOTE | 2023-08-03 17:49 | ER ---
Nurse's Notes [facility] Name: Cristopher Mercado Age: 72 yrs Sex: Male : 1950 Arrival Date: 08/03/2023 Time: 15:22 Bed 15 Private MD: Diagnosis: Dyspnea;Palpitations Presentation: 08/02 15:44 Chief complaint: Patient states: SOB since yesterday , also felt like his heart is iw having an extra beat. Coronavirus screen: At this time, the client does not indicate any symptoms associated with coronavirus-19. Ebola Screen: Patient negative for fever greater than or equal to 101.5 degrees Fahrenheit, and additional compatible Ebola Virus Disease symptoms Patient denies exposure to infectious person. Patient denies travel to an Ebola-affected area in the 21 days before illness onset. No symptoms or risks identified at this time. Initial Sepsis Screen: Does the patient meet any 2 criteria? No. Patient's initial sepsis screen is negative. Does the patient have a suspected source of infection? No. Patient's initial sepsis screen is negative. Risk Assessment: Do you want to hurt yourself or someone else? Patient reports no desire to harm self or others. Onset of symptoms was August 02, 2023. 15:44 Method Of Arrival: Ambulatory iw 15:44 Acuity: BETZAIDA 3 iw 15:45 Coronavirus screen: At this time, the client does not indicate any symptoms associated as6 with coronavirus-19. Ebola Screen: No symptoms or risks identified at this time. 15:45 Method Of Arrival: Ambulatory as6 Historical: - Allergies: 23:09 No Known Allergies; cm10 - PMHx: 15:45 diabetes mellitus; Hypertensive disorder; iw - PSHx: 15:45 intranasal sx ; for broken nose; iw - Immunization history:: Adult Immunizations up to date. - Infectious Disease History:: Denies. - Social history:: Smoking status: Patient denies any tobacco usage or history of. Screenin:45 [facility] ED Fall Risk Assessment (Adult) History of falling in the last 3 months, as6 including since admission No falls in past 3 months (0 pts) Confusion or Disorientation No (0 pts) Intoxicated or Sedated No (0 pts) Impaired Gait No (0 pts) Mobility Assist Device Used No (0 pt) Altered Elimination No (0 pt) Score/Fall Risk Level 0 - 2 = Low Risk Oriented to surroundings, Maintained a safe environment, Educated pt \T\ family on fall prevention, incl call for assistance when getting out of bed, Assessed \T\ reinforced patient's understanding of fall precautions. Abuse screen: Denies threats or abuse. Denies injuries from another. Nutritional screening: No deficits noted. Tuberculosis screening: No symptoms or risk factors identified. Assessment: 16:01 General: Appears in no apparent distress. comfortable, Behavior is calm, cooperative. as6 Pain: Denies pain. Neuro: Level of Consciousness is awake, alert, obeys commands, Oriented to person, place, time, situation. Cardiovascular: Denies shortness of breath, Heart tones S1 S2 present Capillary refill < 3 seconds Patient's skin is warm and dry. Respiratory: Airway is patent Trachea midline Respiratory effort is even, unlabored, Respiratory pattern is regular, symmetrical, Breath sounds are clear bilaterally. Denies shortness of breath. GI: No deficits noted. No signs and/or symptoms were reported involving the gastrointestinal system. : No deficits noted. No signs and/or symptoms were reported regarding the genitourinary system. EENT: No deficits noted. No signs and/or symptoms were reported regarding the EENT system. Derm: Skin is intact, is healthy with good turgor. Musculoskeletal: Circulation, motion, and sensation intact. Range of motion: intact in all extremities. 18:17 Reassessment: Patient appears in no apparent distress at this time. Patient and/or as6 family updated on plan of care and expected duration. Pain level reassessed. Patient is alert, oriented x 3, equal unlabored respirations, skin warm/dry/pink. Vital Signs: 16:02 BP 146 / 63; Pulse 64; Resp 17 S; Temp 98.4(TE); Pulse Ox 99% on R/A; Pain 0/10; as6 17:00 BP 126 / 55; Pulse 60; Resp 13 S; Pulse Ox 98% on R/A; as6 18:16 BP 150 / 56; Pulse 79; Resp 19 S; Pulse Ox 95% on R/A; as6 22:00 BP 105 / 59; Pulse 76; Resp 16; Temp 97.1(IR); Pulse Ox 99% ; cm10 22:00 Weight 96.16 kg; Height 5 ft. 7 in. ; Pain 0/10; cm10 22:00 Body Mass Index 33.20 (96.16 kg, 170.18 cm) cm10 16:02 Pain Scale: Adult as6 22:00 Pain Scale: Adult cm10 ED Course: 15:27 Patient arrived in ED. mg5 15:30 Jalil Maxwell PA is PHCP. cp 15:30 John Johnson MD is Attending Physician. cp 15:45 Catracho Ramon, AKHIL is Primary Nurse. as6 15:45 Triage completed. iw 15:45 Arm band placed on. as6 15:58 Inserted saline lock: 20 gauge in right antecubital area, using aseptic technique. as6 Blood collected. 15:58 Basic Metabolic Panel Sent. as6 15:59 Troponin HS Sent. as6 15:59 PT-INR Sent. as6 15:59 NT PRO-BNP Sent. as6 15:59 Magnesium Sent. as6 15:59 CBC with Diff Sent. as6 16:02 Placed in gown. Bed in low position. Call light in reach. Side rails up X 1. Client as6 placed on continuous cardiac and pulse oximetry monitoring. NIBP monitoring applied. remote sensing surveyor on. 16:26 XRAY Chest (1 view) In Process Unspecified. EDMS 17:43 CT Chest Wo Con In Process Unspecified. EDMS 17:48 Prince Evangelista MD is Hospitalizing Provider. cp 18:00 Provided Education on: need for admit. as6 18:00 No provider procedures requiring assistance completed. Patient admitted, IV remains in as6 place. Administered Medications: 15:58 Drug: Levalbuterol Inhalation 1.25 mg Inhalation once Route: Inhalation; as6 18:05 Drug: Furosemide IVP 20 mg IVP once; give over 2 minutes Route: IVP; Site: right as6 antecubital; 23:09 Follow up: Response: No adverse reaction cm10 Medication: 15:46 VIS not applicable for this client. as6 Outcome: 17:48 Decision to Hospitalize by Provider. cp 18:01 Condition: stable as6 18:01 Instructed on the need for admit, 23:09 Admitted to ER Hold. Please see [facility] for further documentation. cm10 08/03 05:12 Patient left the ED. jb4 Signatures: Dispatcher [employer] Sierra Aguilera RN RN iw Jalil Maxwell PA PA cp Bryson, James, RN RN jb4 Catracho Ramon, RN RN as6 Jerri Alston, RN RN cm10 Nika Lujan mg5
[2023-08-03] MEDS ORDERED: FUROSEMIDE 20 MG/ 2ML VIAL ONE (17:54)
--- NOTE | 2023-08-03 18:31 | P.HP ---
Certification for Inpatient Patient admitted to: Observation With expected LOS: <2 Midnights Practitioner: I am a practitioner with admitting privileges, knowledge of patient current condition, hospital course, and medical plan of care. Services: Services provided to patient in accordance with Admission requirements found in Title 42 Section 412.3 of the Code of Federal Regulations Patient History Date of Service: 08/03/23 Reason for admission: shortness of breath History of Present Illness: Patient is a 72 year old male with a PMH of HTN, Type II diabetes mellitus and CKD stage III. He follows up at [facility] with Dr Tee. He is admitted after he was advised to present to ER for evalaution. He developed difficulty breathing < 24 hours ago. He denies chest pain, palpitations or lower extremity edema. He just felt his breathing became slightly labored. Otherwise, patient has been on his usual state of health. His follow-up appointments have been very encouraging. He was told that his diabetes has been under control. Patient medications include lisinopril and pioglitazone. During this visit in the ER, he had a creatinine of 1.61 which was baseline. However, his BNP is 590. Chest x-ray showing evidence of pulmonary congestion. He received a dose of IV Lasix in the ER. He is going to be admitted for possibly new onset CHF. Physical Examination - Physical Exam General: Alert, In no apparent distress HEENT: Atraumatic, Normocephalic Neck: Supple Respiratory: Other (Breathing is not labored) Cardiovascular: No edema, Normal pulses, Irregular heart rate/rhythm Neurological: Normal speech, Cranial nerves 3-12 intact - Studies Laboratory Data (last 24 hrs) 08/03/23 08/03/23 08/03/23 15:57 15:57 15:57 WBC 8.80 Hgb 10.1 L Hct 29.7 L Plt Count 364 PT 12.6 H INR 1.15 Sodium 134 L Potassium 4.1 BUN 31 H Creatinine 1.61 H Glucose 100 Magnesium 1.8 Assessment and Plan - Problems (Diagnosis) (1) New onset of congestive heart failure Current Visit: Yes Status: Acute (2) Type II diabetes mellitus Current Visit: Yes Status: Acute (3) Hypertension Current Visit: Yes Status: Acute - Plan Assessment Patient is a 72-year-old male with a known past medical history of hypertension, diabetes mellitus and CKD stage III. He is presenting to the ER for evaluation of acute onset of shortness of breath. Chest x-ray has evidence of pulmonary congestion. His presenting BNP was 590. Patient received a dose of IV Lasix in the ER. He is currently on room air and hemodynamically stable. 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 and out after the initial Lasix Will repeat another dose of Lasix tomorrow morning if his renal function permits or sooner if becomes symptomatic Follow 2D echo, lipid panel and hemoglobin A1c Cardiology consulted as well Type 2 diabetes mellitus Patient takes pioglitazone at home, which is not a contraindication if CHF is suspected Will treat with insulin sliding scale and consider alternative agent Hypertension Will consider starting hydralazine and nitrates based on echocardiogram As needed IV hydralazine in place DVT prophylaxisheparin subcu DispoHome, hopefully tomorrow if medically cleared CODE STATUSfull code. This is documented in the chart as well. - Advance Directives Does patient have a Living Will: No Does patient have a Durable POA for Healthcare: No
[2023-08-03] MEDS ORDERED: HYDRALAZINE HCL 20 MG/ML VIAL IV PRN (18:40)
--- NOTE | 2023-08-03 18:44 | RAD REPORT ---
EXAM DESCRIPTION: CT - Thorax Wo Con - 08/03/2023 5:41 pm CLINICAL HISTORY: Palpitations;SOB COMPARISON: Chest Single View dated 08/03/2023 TECHNIQUE: Axial thin cut images of the chest were obtained without IV contrast. Multiplanar reforma ts were generated and reviewed. All CT scans are performed using dose optimization technique as appropriate and may include automated exposure control or mA/KV adjustment according to patient size. FINDINGS: Reticular peripheral opacities, predominantly in the bilateral lung bases. No mass or foca l infiltrate in the lung parenchyma. No pleural thickening or pleural effusion. No pneumothorax. No abnormal mediastinal or hilar masses or lymphadenopathy seen. No significant aortic or pulmonary a rtery findings. Assessment is limited in the absence of IV contrast. No chest wall mass or abnormal axillary lymphadenopathy. Evaluation of the solid abdominal structures reveals no suspicious findings. IMPRESSION: No acute process within the chest. Reticular peripheral opacities, predominantly in the bilateral lung bases, most suggestive of interst itial pulmonary fibrosis.
[2023-08-03] MEDS: IPRATROPIUM BROM 0.5MG/2.5ML NEB SCH (19:00)
[2023-08-03] MEDS: ALBUTEROL 2.5 MG/3 ML NEB SOL NEB SCH (19:00)
[2023-08-03 23:12] VITALS: BMI 33.2
[2023-08-04] MEDS ORDERED: HEPARIN 5000 UNIT/ML 1 ML VIAL ONE (00:55)
[2023-08-04] MEDS: HEPARIN 5000 UNIT/ML 1 ML VIAL SQ SCH (01:00)
[2023-08-04 04:25] LABS: Absolute Eosinophils 0.5 K/uL (0-0.5); Absolute Lymphocytes (CBC) 2.5 K/uL (0.7-4.9); Absolute Monocytes 0.8 K/uL (0.1-1.3); Absolute Neutrophil 3.9 K/uL (1.8-8.0); Basophils % 0.2 % (0-1.3); Hematocrit 30.9 % (39.6-49.0); Hemoglobin 10.4 g/dL (13.6-17.9); MCH 31.7 pg (27.0-35.0); MCHC 33.7 g/dL (32.0-36.0); MPV 7.3 fL (7.6-11.3); Monocytes % 10.4 % (3.3-12.3); Neutrophils % 51.4 % (41.7-73.7); Nucleated Red Blood Cells % 0.1 % (0-0); Platelets 381 thou/uL (152-406); RBC Red Blood Cell Count 3.29 M/uL (4.33-5.43); Red Cell Distribution Width 14.3 % (12.1-15.2)
[2023-08-04 04:48] LABS: Anion Gap 8.1 mEq/L (5.0-15.0); Potassium 4.1 mEq/L (3.5-5.1)
[2023-08-04 05:44] VITALS: O2SAT 99
--- NOTE | 2023-08-04 08:07 | P.PN ---
Subjective Date of Service: 08/04/23 Chief Complaint: shortness of breath Admitted for shortness of breath, reports mild shortness of breath worse with exertion New onset acute heart failure unknown baseline Lasix ordered daily Cardiology consulted Physical Examination - Vital Signs Temperature: 98 F Blood Pressure: 114/59 Pulse: 65 Respirations: 19 Pulse Ox (%): 96 - Physical Exam General: Alert, In no apparent distress, Oriented x3 HEENT: Atraumatic, Normocephalic Neck: Supple, JVD not distended Respiratory: Normal air movement, Diminished Cardiovascular: Normal pulses, Irregular heart rate/rhythm Capillary refill: <2 Seconds Gastrointestinal: Normal bowel sounds, Soft and benign Musculoskeletal: No clubbing, No swelling Integumentary: No breakdown, No significant lesion Neurological: Normal speech, Normal strength at 5/5 x4 extr - Studies Laboratory Data (last 24 hrs) 08/03/23 08/03/23 08/03/23 15:57 15:57 15:57 WBC 8.80 Hgb 10.1 L Hct 29.7 L Plt Count 364 PT 12.6 H INR 1.15 Sodium 134 L Potassium 4.1 BUN 31 H Creatinine 1.61 H Glucose 100 Magnesium 1.8 Assessment And Plan - Plan Assessment plan Acute on chronic heart failure unknown baseline Elevated BNP Acute hypoxic respiratory failure secondary to decompensated heart failure Based on his symptoms Will admit under observation with 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 organ 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 and out after the initial Lasix Will repeat another dose of Lasix tomorrow morning if his renal function permits or sooner if becomes symptomatic Follow 2D echo, lipid panel and hemoglobin A1c Cardiology consulted as well Echo ordered CKD stage III Trend kidney function Type 2 diabetes mellitus Patient takes pioglitazone at home, which is not a contraindication if CHF is suspected Will treat with insulin sliding scale and consider alternative agent Hypertension Will consider starting hydralazine and nitrates based on echocardiogram As needed IV hydralazine in place DVT prophylaxisheparin subcu DispoHome, hopefully tomorrow if medically cleared CODE STATUSfull code. This is documented in the chart as well. Discharge Plan: Home Critical Care: No Time Spent Managing PTS Care (In Minutes): 35
[2023-08-04] MEDS: FUROSEMIDE 40 MG/4 ML VIAL IV SCH (09:03)
--- NOTE | 2023-08-04 09:55 | P.CNS ---
Date of Consult: 08/04/23 Chief Complaint: shortness of breath History of Present Illness: Patient with PMH of HTN, HLD presented with worsening SOB, he report one episode where he felt his breathing was not normal when he was outside but got better after going inside the house, denies chest pain, no palpitations, no syncope. Allergies No Known Allergies Allergy (Unverified 08/03/23 19:59) Home Medications: Aspirin [Aspirin EC 81 MG] 81 mg PO DAILY 08/03/23 Atorvastatin Calcium 10 mg PO BEDTIME 08/03/23 Carvedilol [Coreg] 3.125 mg PO SEECOM 08/03/23 Lisinopril/Hydrochlorothiazide [Lisinopril-Hctz 20-12.5 mg Tab] 1 each PO DAILY 08/03/23 Pioglitazone [Actos*] 15 mg PO DAILY 08/03/23 - Past Medical/Surgical History -: DM -: HTN - Social History Place of Residence: Home Review of Systems 10-point ROS is otherwise unremarkable Physical Examination Temp Pulse Resp BP Pulse Ox 98 F 65 19 114/59 L 96 08/04/23 08:09 08/04/23 09:03 08/04/23 08:09 08/04/23 09:03 08/04/23 08:09 General: Alert, In no apparent distress HEENT: Atraumatic, PERRLA, Mucous membr. moist/pink, EOMI, Sclerae nonicteric Neck: Supple, 2+ carotid pulse no bruit, No LAD, Without JVD or thyroid abnormality Respiratory: Clear to auscultation bilaterally, Normal air movement Cardiovascular: Regular rate/rhythm, Normal S1 S2 Gastrointestinal: Normal bowel sounds, No tenderness Laboratory Data (last 24 hrs) 08/03/23 08/03/23 08/03/23 15:57 15:57 15:57 WBC 8.80 Hgb 10.1 L Hct 29.7 L Plt Count 364 PT 12.6 H INR 1.15 Sodium 134 L Potassium 4.1 BUN 31 H Creatinine 1.61 H Glucose 100 Magnesium 1.8 - Problems (1) SOB (shortness of breath) Current Visit: Yes Status: Acute Plan: Patient breathing improved with one dose of IV lasix. no signs of volume overload. patient can follow up as outpatient for echo and possible stress test. (2) HLD (hyperlipidemia) Current Visit: Yes Status: Acute Plan: Continue Lipitor 10 mg daily (3) Hypertension Current Visit: Yes Status: Acute Plan: Continue patient home medications. patient can be discharged from cardiology stand point.
--- NOTE | 2023-08-04 09:57 | P.DS ---
Admission Date: 08/03/23 Discharge Date: 08/04/23 Disposition: ROUTINE DISCHARGE Discharge Condition: GOOD Reason for Admission: shortness of breath Brief History of Present Illness: Patient is a 72 year old male with a PMH of HTN, Type II diabetes mellitus and CKD stage III. He follows up at [facility] with Dr Tee. He is admitted after he was advised to present to ER for evalaution. He developed difficulty breathing < 24 hours ago. He denies chest pain, palpitations or lower extremity edema. He just felt his breathing became slightly labored. Otherwise, patient has been on his usual state of health. His follow-up appointments have been very encouraging. He was told that his diabetes has been under control. Patient medications include lisinopril and pioglitazone. During this visit in the ER, he had a creatinine of 1.61 which was baseline. However, his BNP is 590. Chest x-ray showing evidence of pulmonary congestion. He received a dose of IV Lasix in the ER. He is going to be admitted for possibly new onset CHF. - Physical Exam General: Alert, In no apparent distress HEENT: Atraumatic, Normocephalic Neck: Supple Respiratory: Other (Breathing is not labored) Cardiovascular: No edema, Normal pulses, Irregular heart rate/rhythm Neurological: Normal speech, Cranial nerves 3-12 intact Hospital Course: 72 year-old patient with a PMH of HTN, Type II diabetes mellitus and CKD stage III. He follows up at [facility] with Dr Tee. He is admitted after he was advised to present to ER for evalaution. He developed difficulty breathing. Was noted to have acute on chronic heart failure. CKD stage III. Condition improved with Chest x-ray has evidence of pulmonary congestion. His presenting BNP was 590. Patient received a dose of IV Lasix in the ER. He is currently on room air and hemodynamically stable. Patient tolerating diet, stable for discharge to home with follow-up appointment with primary care physician. Will need to follow-up with cardiology for outpatient for echo and possible stress test. PROBLEM: acute chronic heart failure treated with Lasix in the emergency room pulmonary congestion. His presenting BNP was 590. Patient received a dose of IV Lasix in the ER. CKD stage III. follow-up with cardiology for outpatient for echo and possible stress test. Microcytic anemia stable resume home Prior above blood pressure medication Will need to follow-up with cardiology for outpatient for echo and possible stress test. Rad/Lab/Micro: Chronic kidney disease-will need to follow-up with nephrology Microcytic anemia stable H&H 10.310.4 stable Elevated BNP-His presenting BNP was 590. Treated with Lasix CTA of the thorax IMPRESSION: No evidence of acute central pulmonary emboli. Echo 08/02 . NORMAL LEFT VENTRICULAR SYSTOLIC FUNCTION, EJECTION FRACTION 60%, NORMAL WALL MOTION 2. NORMAL DIASTOLIC DYSFUNCTION 3. TRACE MITRAL REGURGITATION, AORTIC INSUFFICIENCY, TRICUSPID REGURGITATION Continue home medicines as previously prescribed GOAL: Clear understanding of disease process INSTRUCTIONS: Physician Discharge Instructions: -Follow-up with PCP in 1 to 2 weeks -Please call Dr. Aparicio at [phone] if any questions regarding hospital stay -Please call nursing station at [phone] if any nursing or medication questions -Return to the emergency room if symptoms worsen Diet: ADA, low sodium Activity: Fall precautions Vital Signs/Physical Exam: Temp Pulse Resp BP Pulse Ox 98 F 65 19 114/59 L 96 08/04/23 08:09 08/04/23 09:03 08/04/23 08:09 08/04/23 09:03 08/04/23 08:09 Laboratory Data at Discharge: WBC 7.70 thou/uL (4.3-10.9) 08/04/23 04:13 Hgb 10.4 g/dL (13.6-17.9) L 08/04/23 04:13 Hct 30.9 % (39.6-49.0) L 08/04/23 04:13 Plt Count 381 thou/uL (152-406) 08/04/23 04:13 PT 12.6 SECONDS (9.5-12.5) H 08/03/23 15:57 INR 1.15 08/03/23 15:57 Sodium 134 mEq/L (136-145) L 08/04/23 04:13 Potassium 4.1 mEq/L (3.5-5.1) 08/04/23 04:13 BUN 31 mg/dL (7-18) H 08/04/23 04:13 Creatinine 1.47 mg/dL (0.70-1.30) H 08/04/23 04:13 Glucose 88 mg/dL (74-106) 08/04/23 04:13 Magnesium 1.8 mg/dL (1.6-2.4) 08/03/23 15:57 Triglycerides 61 mg/dL (<150) 08/04/23 04:13 Cholesterol 138 mg/dL (<200) 08/04/23 04:13 HDL Cholesterol 54 mg/dL (40-60) 08/04/23 04:13 Cholesterol/HDL Ratio 2.56 08/04/23 04:13 Home Medications: Aspirin [Aspirin EC 81 MG] 81 mg PO DAILY 08/03/23 Atorvastatin Calcium 10 mg PO BEDTIME 08/03/23 Carvedilol [Coreg] 3.125 mg PO SEECOM 08/03/23 Lisinopril/Hydrochlorothiazide [Lisinopril-Hctz 20-12.5 mg Tab] 1 each PO DAILY 08/03/23 Pioglitazone [Actos*] 15 mg PO DAILY 08/03/23 Physician Discharge Instructions: 72 year-old patient presented with shortness of breath. Was evaluated by cardiology echo was ordered. Was noted to have CKD D stage III, elevated BNP. Diabetes, hypertension, Condition improved with oxygen. Lasix. Patient tolerating diet, stable for discharge to home with follow-up appointment with primary care physician. Follow-up with cardiology after this PROBLEM: Dyspnea mildly improved with low-dose Elevated BNP follow-up with cardiology after CKD stage III Diabetes CXR MPRESSION: Findings suggesting central congestion or mild pulmonary edema CT chest IMPRESSION: No acute process within the chest. Reticular peripheral opacities, predominantly in the bilateral lung bases, most suggestive of interstitial pulmonary fibrosis Continue home medicines as previously prescribed GOAL: Clear understanding of disease process INSTRUCTIONS: Physician Discharge Instructions: -Follow-up with PCP in 1 to 2 weeks -Please call Dr. Aparicio at [phone] if any questions regarding hospital stay -Please call nursing station at [phone] if any nursing or medication questions -Return to the emergency room if symptoms worsen Followup: Josh Burkett MD [ACTIVE - CAN ADMIT] - Kit Tee DO [Primary Care Provider] - Time spent managing pt's care (in minutes): 55
--- NOTE | 2023-08-04 11:21 | RAD REPORT ---
EXAM DESCRIPTION: CT - Chest For Pe Angio - 08/04/2023 8:35 am CLINICAL HISTORY: acute onset of shortness of breath COMPARISON: Thorax Wo Con dated 08/03/2023 TECHNIQUE: Thin axial CT images of the chest were obtained following administration of 100 mL Isovue 370 IV contrast. Multiplanar reconstructions, and maximum intensity projection reconstructions were generated and reviewed. Exam utilizes a protocol for optimal evaluation of pulmonary arterial tree. All CT scans are performed using dose optimization technique as appropriate and may include automated exposure control or mA/KV adjustment according to patient size. FINDINGS: Pulmonary arteries are normal. No emboli or other suspicious finding. No acute or signific ant aorta findings. No mass or infiltrate in the lung parenchyma. Mild bibasilar atelectatic changes peripherally. No ple ural thickening or pleural effusion. No pneumothorax. No abnormal mediastinal or hilar masses or lymphadenopathy seen. No chest wall mass or abnormal axill iary lymphadenopathy. IMPRESSION: No evidence of acute central pulmonary emboli. No other acute pulmonary process.
--- NOTE | 2023-08-04 11:43 | ECHO ---
HEIGHT: 5 ft 7 in WEIGHT: 212 lb 0 oz DATE OF STUDY: 08/04/[address]: Prince Tim Evangelista MD 2-DIMENSIONAL: YES M.MODE: YES DOPPLER: YES COLOR FLOW: YES TDS: PORTABLE: YES DEFINITY: BUBBLE STUDY: DIAGNOSIS: SHORTNESS OF BREATH CARDIAC HISTORY: CATHERIZATION: NO SURGERY: NO PROSTHETIC VALVE: NO PACEMAKER: NO MEASUREMENTS (cm) DIASTOLIC (NORMALS) SYSTOLIC (NORMALS) IVSd 1.2 (0.6-1.2) LA Diam 2.6 (1.9-4.0) LVEF 60% LVIDd 5.2 (3.5-5.7) LVIDs 3.9 (2.0-3.5) %FS 26% LVPWd 1.2 (0.6-1.2) Ao Diam 3.1 (2.0-3.7) 2 DIMENSIONAL ASSESSMENT: RIGHT ATRIUM: NORMAL LEFT ATRIUM: NORMAL RIGHT VENTRICLE: NORMAL LEFT VENTRICLE: NORMAL TRICUSPID VALVE: TRACE TRICUSPID REGURGITATION MITRAL VALVE: TRACE MITRAL REGURGITATION PULMONIC VALVE: NORMAL AORTIC VALVE: TRACE AORTIC INSUFFICIENCY PERICARDIAL EFFUSION: NONE AORTIC ROOT: NORMAL LEFT VENTRICULAR WALL MOTION: NORMAL DOPPLER/COLOR FLOW: NORMAL COMMENTS: 1. NORMAL LEFT VENTRICULAR SYSTOLIC FUNCTION, EJECTION FRACTION 60%, NORMAL WALL MOTION 2. NORMAL DIASTOLIC DYSFUNCTION 3. TRACE MITRAL REGURGITATION, AORTIC INSUFFICIENCY, TRICUSPID REGURGITATION TECHNOLOGIST: IRAIDA OREILLY
[2023-08-04 12:16] VITALS: BP 145/59; TEMP 97.1
--- NOTE | 2023-08-04 13:17 | EKG ---
Test Date: 2023-08-04 Test Time: 04:09:03 Spent Grain Dryer: JOSE FRANCISCO MEASUREMENT RESULTS: Intervals: Rate: 65 OR: 130 QRSD: 84 QT: 418 QTc: 434 Thayer: P: 29 OR: 130 QRS: 29 T: 5 INTERPRETIVE STATEMENTS: Normal sinus rhythm Normal ECG Compared to ECG 08/03/2023 15:46:29 Sinus arrhythmia no longer present Myocardial infarct finding no longer present Electronically Signed On 08-04-23 13:16:42 CDT by Jonny Oneil
--- NOTE | 2023-08-04 13:19 | EKG ---
Test Date: 2023-08-03 Test Time: 15:46:29 Insurance Sales Manager: MEASUREMENT RESULTS: Intervals: Rate: 72 MO: 114 QRSD: 82 QT: 380 QTc: 416 [place]: P: 35 MO: 114 QRS: 20 T: -3 INTERPRETIVE STATEMENTS: Sinus rhythm with marked sinus arrhythmia Possible Anterior infarct, age undetermined Abnormal ECG Compared to ECG 03/28/2023 07:57:28 Myocardial infarct finding now present Atrial premature complex(es) no longer present Electronically Signed On 08-04-23 13:17:07 CDT by Jonny Oneil
== END 2023-08-04 12:17 | disposition home or self-care (01) ==
LOC: ER 15:22 → ERHOLD 18:25 → 2ND 08-04 04:44
PROVIDERS: ADMIT Internal Medicine; ATTEND Hospitalist
DX: R06.02 Shortness of breath (principal); E11.22 Type 2 diabetes mellitus with diabetic chronic kidney disease; I12.9 Hypertensive chronic kidney disease with stage 1 through stage 4 chronic kidney disease, or unspecified chronic kidney disease; N18.30 Chronic kidney disease, stage 3 unspecified; E78.5 Hyperlipidemia, unspecified; R79.89 Other specified abnormal findings of blood chemistry
CPT/HCPCS: 93005 ×2; 93306; 85025 ×2; 80048 ×2; 36415 ×2; 83735; 85610; 80061; 85379; 83036; 84484 ×2; 83880 ×2; 71250; 71275; 71045; 96374; 99285; Q9967; J1644 ×2; J1940 ×2; J7614; G0378 ×4